=== PATIENT | female | born 1960 | race Caucasian/White ===

== ENCOUNTER → 2019-02-21 10:53 | Outpatient (CLI) | payer OTHER, SELFPAY ==
[2019-02-21 10:57] LABS: Microscopic, Urine URINE MICROSCOPIC (MICROSCOPIC)
[2019-02-21 11:24] LABS: Basophils # 0.1 K/mm3 (0-0.2); Basophils % 0.5 % (0.1-2.0); Eosinophils # 0.3 K/mm3 (0.0-0.4); Eosinophils % 2.8 % (0.1-12.0); Hematocrit 43.3 % (37.0-47.0); Hemoglobin 14.1 g/dL (12.2-16.2); Lymphocytes % 38.1 % (10-50); Mean Corpuscular HGB Conc 32.5 g/dL (31.8-35.4); Mean Corpuscular Hemoglobin 31.5 pg (27.0-31.2); Mean Corpuscular Volume 96.7 fl (81-99); Mean Platelet Volume 10.1 fl (7.4-10.4); Monocytes # 0.7 K/mm3 (0.1-1.0); Monocytes % 6.3 % (1.7-9.3); Neutrophils # 5.4 K/mm3 (1.8-7.8); Neutrophils % 52.2 % (37.0-80.0); Platelet Count 262 K/mm3 (142-424); Red Blood Count 4.48 M/mm3 (4.20-5.40); Red Cell Distribution Width 13.7 % (11.5-17.5); White Blood Count 10.4 K/mm3 (4.8-10.8)
[2019-02-21 12:24] LABS: Alanine Aminotransferase 34 U/L (12-78); Albumin Level 3.9 gm/dL (3.4-5.0); Albumin/Globulin Ratio 1.2 (1.1-1.8); Alkaline Phosphatase 141 U/L (46-116); Anion Gap 16.1 mEq/L (5-15); Aspartate Amino Transferase 21 U/L (15-37); Bilirubin,Total 0.6 mg/dL (0.2-1.0); Blood Urea Nitrogen 16 mg/dL (7-18); Calcium 9.7 mg/dL (8.5-10.1); Carbon Dioxide 27 mmol/L (21.0-32.0); Chloride 103 mmol/L (98-107); Chol/HDL Ratio 2.5 (1-3.5); Cholesterol 165 mg/dL (140-200); Creatinine,Serum 0.81 mg/dL (0.55-1.02); Estimated Glomerular Filt Rate 73 ml/min (>60); GFR (African American) 88 ML/MIN (>60); Globulin 3.3 gm/dl (1.3-3.2); Glucose 94 mg/dL (74-106); HDL Cholesterol 65 mg/dL (29-89); LDL Cholesterol 81 mg/dL (0-130); Potassium 4.1 mmoL/L (3.5-5.1); Sodium 142 mmol/L (136-145); Total Protein,Serum 7.2 gm/dL (6.4-8.2); Triglycerides 96 mg/dL (30-200); VLDL Cholesterol 19 mg/dL (0-40)
[2019-02-21 12:32] LABS: Appearance,Urine SL CLOUDY (Clear); Bilirubin,Urine Negative (Negative); Blood, Urine Negative (Negative); Color,Urine YELLOW (Yellow); Glucose,Urine (UA) Negative (Negative); Ketones,Urine Negative (Negative); Leukocyte Esterase,Urine Negative (Negative); Nitrate,Urine Negative (Negative); PH,Urine 5.5 (5.0-8.5); Protein,Urine Negative (Negative); Specific Gravity, Urine 1.025 (1.005-1.030); Urobilinogen,Urine 0.2 EU/dl (0.2)
[2019-02-21 12:57] LABS: Bacteria,Urine 1+ /lpf
== END ==
PROVIDERS: Visit Provider Internal Medicine
DX: Z01.818 Encounter for other preprocedural examination (principal); I10 Essential (primary) hypertension; E78.5 Hyperlipidemia, unspecified
CPT/HCPCS: 36415; 80053; 80061; 81001; 85025; 93005

== ENCOUNTER → 2021-09-08 12:16 | Outpatient (CLI) | payer OTHER, SELFPAY ==
[2021-09-08 12:24] LABS: Basophils # 0.1 K/mm3 (0-0.2); Basophils % 0.9 % (0.1-2.0); Eosinophils # 0.5 K/mm3 (0.0-0.4); Eosinophils % 4.7 % (0.1-12.0); Hematocrit 45.3 % (37.0-47.0); Hemoglobin 14.3 g/dL (12.2-16.2); Lymphocytes # 4.1 K/mm3 (0.7-4.5); Lymphocytes % 36.1 % (10-50); Mean Corpuscular HGB Conc 31.5 g/dL (31.8-35.4); Mean Corpuscular Hemoglobin 31.3 pg (27.0-31.2); Mean Corpuscular Volume 99.4 fl (81-99); Mean Platelet Volume 11.1 fl (7.4-10.4); Monocytes # 0.8 K/mm3 (0.1-1.0); Monocytes % 6.9 % (1.7-9.3); Neutrophils # 5.8 K/mm3 (1.8-7.8); Neutrophils % 51.4 % (37.0-80.0); Platelet Count 267 K/mm3 (142-424); Red Blood Count 4.56 M/mm3 (4.20-5.40); Red Cell Distribution Width 13.7 % (11.5-17.5); White Blood Count 11.3 K/mm3 (4.8-10.8)
[2021-09-08 12:50] LABS: Alanine Aminotransferase 18 U/L (12-78); Albumin Level 3.9 g/dl (3.5-5.0); Albumin/Globulin Ratio 1.5 (1.1-1.8); Alkaline Phosphatase 106 U/L (38-126); Anion Gap 10.7 mEq/L (5-15); Aspartate Amino Transferase 25 U/L (14-36); Bilirubin,Total 0.4 mg/dl (0.2-1.3); Blood Urea Nitrogen 14 mg/dl (7-17); Carbon Dioxide 31 mmol/L (22.0-30.0); Chloride 106 mmol/L (98-107); Chol/HDL Ratio 2.5 (1-3.5); Cholesterol 163 mg/dl (140-200); Estimated Glomerular Filt Rate 85 ml/min (>60); GFR (African American) 103 ML/MIN (>60); Globulin 2.6 g/dL (1.3-3.2); Glucose 89 mg/dl (74-100); HDL Cholesterol 66 mg/dl (40-60); Potassium 4.7 mmoL/L (3.5-5.1); Sodium 143 mmol/L (136-145); Total Protein,Serum 6.5 g/dl (6.3-8.2); Triglycerides 92 mg/dl (30-150); VLDL Cholesterol 18 mg/dL (0-40)
[2021-09-08 12:59] LABS: Erythrocyte Sedimentation Rate 12 mm/hr (0-30)
[2021-09-08 13:01] LABS: Direct LDL Cholesterol 75.76 mg/dL (100-129)
[2021-09-08 13:41] LABS: Vitamin B12 > 1000 pg/mL (239-931)
[2021-09-08 14:48] LABS: 25-OH Vitamin D, Total 67.4 ng/mL (30-100)
== END ==
PROVIDERS: Visit Provider Internal Medicine
DX: I10 Essential (primary) hypertension (principal); E78.5 Hyperlipidemia, unspecified
CPT/HCPCS: 80053; 80061; 82306; 82607; 85025; 85651

== ENCOUNTER → 2021-09-09 14:37 | Outpatient (CLI) | payer OTHER, SELFPAY ==
[2021-09-09 14:40] LABS: Adenovirus F 40/41, stool Not Detected (NotDetected); Astrovirus Not Detected (NotDetected); Campylobacter Not Detected (NotDetected); Clostridium Difficile A/B, PCR Not Detected (NotDetected); Cryptosporidium Not Detected (NotDetected); Cyclospora Cayetanesis Not Detected (NotDetected); Entamoeba histolytica Not Detected (NotDetected); Enteroaggregative E coli Not Detected (NotDetected); Enterotoxigenic E coli Not Detected (NotDetected); Giardia lamblia Not Detected (NotDetected); Norovirus Not Detected (NotDetected); Plesimonas Shigalloides, PCR Not Detected (NotDetected); Rotavirus A Not Detected (NotDetected); Salmonella, PCR Not Detected (NotDetected); Sapovirus Not Detected (NotDetected); Shiga-like toxin E coli Not Detected (NotDetected); Shigella Enterovasive E coli Not Detected (NotDetected); Vibrio Cholerae Not Detected (NotDetected); Vibrio, PCR Not Detected (NotDetected); Yersinia Entercolitica, PCR Not Detected (NotDetected)
[2021-09-09 21:51] LABS: Enteropathogenic E coli Detected (NotDetected)
== END ==
PROVIDERS: Visit Provider Internal Medicine
DX: R19.7 Diarrhea, unspecified (principal); A04.0 Enteropathogenic Escherichia coli infection
CPT/HCPCS: 87177; 87205; 87507

== ENCOUNTER → 2022-03-09 09:43 | Outpatient (CLI) | payer OTHER, SELFPAY ==
--- NOTE | 2022-03-09 12:17 | XR_ITS ---
FINAL REPORT CLINICAL HISTORY: LT KNEE PAIN,STIFFNESS FINDINGS: LEFT KNEE 3 views of the left knee were obtained. There is no acute fracture or dislocation. There is moderately advanced medial compartment joint space narrowing. There osteophytes along the undersurface of the patella. There is a small joint effusion. IMPRESSION: Moderate changes of osteoarthritis at the medial compartment and patellofemoral joints. Reviewed, Interpreted and Dictated by Rene Cross MD Transcribed by Ann Magana Authenticated by Rene Cross MD on 03/09/2022 01:32:19 PM [facility]
[2022-03-09 14:55] LABS: Alanine Aminotransferase 22 U/L (12-78); Albumin Level 4.1 g/dl (3.5-5.0); Albumin/Globulin Ratio 1.6 (1.1-1.8); Alkaline Phosphatase 109 U/L (38-126); Anion Gap 10.2 mEq/L (5-15); Aspartate Amino Transferase 21 U/L (14-36); Bilirubin,Total 0.6 mg/dl (0.2-1.3); Blood Urea Nitrogen 21 mg/dl (7-17); Calcium 9.9 mg/dl (8.4-10.2); Carbon Dioxide 30 mmol/L (22.0-30.0); Chloride 104 mmol/L (98-107); Chol/HDL Ratio 2.8 (1-3.5); Cholesterol 178 mg/dl (140-200); Estimated Glomerular Filt Rate 85 ml/min (>60); GFR (African American) 103 ML/MIN (>60); Globulin 2.5 g/dL (1.3-3.2); Glucose 98 mg/dl (74-100); HDL Cholesterol 64 mg/dl (40-60); Potassium 4.2 mmoL/L (3.5-5.1); Sodium 140 mmol/L (136-145); Total Protein,Serum 6.6 g/dl (6.3-8.2); Triglycerides 130 mg/dl (30-150); VLDL Cholesterol 26 mg/dL (0-40)
[2022-03-09 15:06] LABS: Direct LDL Cholesterol 83.37 mg/dL (100-129)
== END ==
PROVIDERS: PCP Internal Medicine; Visit Provider Internal Medicine
DX: M25.562 Pain in left knee (principal); M25.662 Stiffness of left knee, not elsewhere classified; I10 Essential (primary) hypertension; E78.5 Hyperlipidemia, unspecified; M15.0 Primary generalized (osteo)arthritis; D64.9 Anemia, unspecified
CPT/HCPCS: 73562; 80053; 80061

== ENCOUNTER 2022-06-03 09:00 | Outpatient (RCR) | payer OTHER, SELFPAY ==
--- NOTE | 2022-04-14 09:48 | HMH.PTOPEV ---
PT Outpatient Evaluation Rehab PT Outpatient Evaluation Start: 03/16/22 12:57 Freq: Status: Active Protocol: Document 03/16/22 13:37 JAIRON (Rec: 03/16/22 13:54 JAIRON [id number]) Electronically Signed By Mark Rinaldi, PT 03/16/22 13:37 Outpatient Therapy Subjective History Subjective History Patient is a 61 year old female presenting to outpatient PT with reports of acute knee pain starting approximatley 2 weeks ago. Patient reports that she was sitting in a chair and upon going to stand felt a pop/ locking of the L knee. Most recent imaging indicates L knee medial compartment and PFJ OA. Signs and symptoms consistent with meniscus tear. Comorbidities include hx of heart murmur, MVP, asthma, hypoglycemia and HTN. Patient observation also indicates possible lipidema, which could contribute to decreased mobility and elevated symptoms . Chief Complaint Pain,Stiff,Clicks,Swelling, Catches/Locks,Gives out/ Unstable,Weakness Symptom Type Ache,Throb,Sharp,Dull Symptoms Relieved By Rest/Positioning,Ice, Prescription Meds Symptoms Aggravated By Standing,Physical Activity, Walking Prior Functional Limitations None Current Functional Limitations Housework,Standing,Sitting, Squatting,Recreation Activity, Walking,Stairs,Balance,Bending /Stooping Symptom Description Constant but Variable Level of pain today (0-10) 8 Pain scale - at its best (0-10) 4 Pain scale - at its worst (0-10) 10 Hip/Knee Eval Gait Observation General Gait Pattern Observation Antalgic Gait,Decrease Weight Bear (L) Assistive Device Assistive Devices None / NA Palpation Tenderness left Knee Palpation Finding Tenderness Knee Palpation Overall Comment L lateral joint line and patellar tendon 4/4 MMT Hip Flexion Strength Grade 4- Good- Hip Abduction Strength Grade 4 Good Hip Adduction Strength Grade 4 Good Hip Extension Strength Grade 4- Good-
--- NOTE | 2022-05-17 09:48 | HMH.RHREAS ---
Rehab Reassessment Rehab OP Re-assessment Start: 04/14/22 09:38 Freq: Status: Active Protocol: Document 05/17/22 09:00 JAIRON (Rec: 05/17/22 09:41 JAIRON [id number]) Electronically Signed By Mark Rinaldi, PT 05/17/22 09:00 Rehab Re-assessment Subjective Subjective Patient reports 50% improvement since start of care. I've been having a lot of popping and locking in the left knee. Objective Objective Notes AROM: flx 89 (soft tissue obstruction) ; ext -3 MMT: WFL Pain: 5/10 today; 8/10 at worst over past week Standing/walking time: 20' Special tests: - Assessment Progress Assessment Slower Than Expected Assessment Notes Patient progressing slower than expected secondary to previous medical conditions. Patient has missed the past 2 weeks of PT secondary to cancer surgery. Patient contiues to exhibit signs and symptoms of lipidema in BLE that could be contributing to pain and decreased ROM. Patient would benefit from continuing with skilled PT services in order to address functional limitations with all standing/ambulatory activities. [ End ] Patient goals met STG 2. Goals Not Met All others Plan Plan Continue with current POC. Frequency of Therapy 2x/week Duration of therapy 4 weeks Time and Billing Re-Eval Time 15 Re-Eval Billing Units 1 PHYSICIAN CERTIFICATION: I certify the specified therapy services for Ekaterina Laird are required, authorized, and reviewed every 30 days.
== END 2022-06-03 09:05 | disposition home or self-care (01) ==
LOC: PT 09:00
PROVIDERS: PCP Internal Medicine; Visit Provider Internal Medicine
DX: M25.562 Pain in left knee (principal)
CPT/HCPCS: 97010; 97014; 97110; 97163; 97164; G0283

== ENCOUNTER → 2022-09-13 13:17 | Outpatient (CLI) | payer OTHER, SELFPAY ==
[2022-09-13 15:28] LABS: Basophils # 0.1 K/mm3 (0-0.2); Basophils % 0.9 % (0.1-2.0); Eosinophils # 0.4 K/mm3 (0.0-0.4); Eosinophils % 4.5 % (0.1-12.0); Hematocrit 46.9 % (37.0-47.0); Hemoglobin 14.7 g/dL (12.2-16.2); Lymphocytes # 3.4 K/mm3 (0.7-4.5); Lymphocytes % 36.6 % (10-50); Mean Corpuscular HGB Conc 31.3 g/dL (31.8-35.4); Mean Corpuscular Hemoglobin 30.5 pg (27.0-31.2); Mean Corpuscular Volume 97.4 fl (81-99); Mean Platelet Volume 10.5 fl (7.4-10.4); Monocytes # 0.5 K/mm3 (0.1-1.0); Monocytes % 5.9 % (1.7-9.3); Neutrophils # 4.8 K/mm3 (1.8-7.8); Neutrophils % 52.2 % (37.0-80.0); Platelet Count 310 K/mm3 (142-424); Red Blood Count 4.82 M/mm3 (4.20-5.40); Red Cell Distribution Width 13.8 % (11.5-17.5); White Blood Count 9.2 K/mm3 (4.8-10.8)
[2022-09-13 15:45] LABS: Alanine Aminotransferase 20 U/L (12-78); Albumin Level 4.2 g/dl (3.5-5.0); Albumin/Globulin Ratio 1.6 (1.1-1.8); Alkaline Phosphatase 147 U/L (38-126); Anion Gap 14.3 mEq/L (5-15); Aspartate Amino Transferase 28 U/L (14-36); Bilirubin,Total 0.5 mg/dl (0.2-1.3); Blood Urea Nitrogen 21 mg/dl (7-17); Calcium 10.2 mg/dl (8.4-10.2); Carbon Dioxide 29 mmol/L (22.0-30.0); Chloride 100 mmol/L (98-107); Chol/HDL Ratio 2.4 (1-3.5); Cholesterol 151 mg/dl (140-200); Estimated Glomerular Filt Rate 73 ml/min (>60); GFR (African American) 88 ML/MIN (>60); Globulin 2.6 g/dL (1.3-3.2); Glucose 108 mg/dl (74-100); HDL Cholesterol 64 mg/dl (40-60); Potassium 4.3 mmoL/L (3.5-5.1); Sodium 139 mmol/L (136-145); Total Protein,Serum 6.8 g/dl (6.3-8.2); Triglycerides 81 mg/dl (30-150); VLDL Cholesterol 16 mg/dL (0-40)
[2022-09-13 16:02] LABS: Direct LDL Cholesterol 68.42 mg/dL (100-129)
[2022-09-13 16:40] LABS: Vitamin B12 > 1000 pg/mL (239-931)
[2022-09-13 17:05] LABS: 25-OH Vitamin D, Total 59.5 ng/mL (30-100)
== END ==
PROVIDERS: PCP Internal Medicine; Visit Provider Internal Medicine
DX: I10 Essential (primary) hypertension (principal); I87.2 Venous insufficiency (chronic) (peripheral); E78.5 Hyperlipidemia, unspecified; J45.909 Unspecified asthma, uncomplicated; D64.9 Anemia, unspecified
CPT/HCPCS: 80053; 80061; 82306; 82607; 85025

== ENCOUNTER → 2023-03-13 13:03 | Outpatient (CLI) | payer OTHER, SELFPAY ==
[2023-03-13 14:14] LABS: Chloride 98 mmol/L (98-107); Potassium 4.8 mmoL/L (3.5-5.1); Sodium 140 mmol/L (136-145)
[2023-03-13 14:17] LABS: Alanine Aminotransferase 22 U/L (12-78); Albumin Level 4.2 g/dl (3.5-5.0); Albumin/Globulin Ratio 1.6 (1.1-1.8); Alkaline Phosphatase 113 U/L (38-126); Anion Gap 15.8 mEq/L (5-15); Aspartate Amino Transferase 26 U/L (14-36); Bilirubin,Total 0.5 mg/dl (0.2-1.3); Blood Urea Nitrogen 19 mg/dl (7-17); Carbon Dioxide 31 mmol/L (22.0-30.0); Cholesterol 163 mg/dl (140-200); Estimated Glomerular Filt Rate 73 ml/min (>60); GFR (African American) 88 ML/MIN (>60); Globulin 2.6 g/dL (1.3-3.2); Glucose 77 mg/dl (74-100); Total Protein,Serum 6.8 g/dl (6.3-8.2); Triglycerides 109 mg/dl (30-150); VLDL Cholesterol 22 mg/dL (0-40)
[2023-03-13 14:18] LABS: HDL Cholesterol 61 mg/dl (40-60)
[2023-03-13 14:23] LABS: Chol/HDL Ratio 2.7 (1-3.5)
[2023-03-13 14:29] LABS: Direct LDL Cholesterol 80.17 mg/dL (100-129)
[2023-03-13 15:33] LABS: Hemoglobin A1C 5.7 % (4.0-6.0)
[2023-03-15 09:24] LABS: Basophils # 0.1 K/mm3 (0-0.2); Basophils % 1.2 % (0.1-2.0); Eosinophils # 0.5 K/mm3 (0.0-0.4); Eosinophils % 4.8 % (0.1-12.0); Hematocrit 47.3 % (37.0-47.0); Hemoglobin 14.8 g/dL (12.2-16.2); Lymphocytes # 3.6 K/mm3 (0.7-4.5); Lymphocytes % 38.3 % (10-50); Mean Corpuscular HGB Conc 31.4 g/dL (31.8-35.4); Mean Corpuscular Hemoglobin 30.4 pg (27.0-31.2); Mean Platelet Volume 12.6 fl (7.4-10.4); Monocytes # 0.7 K/mm3 (0.1-1.0); Monocytes % 7.4 % (1.7-9.3); Neutrophils # 4.6 K/mm3 (1.8-7.8); Neutrophils % 48.3 % (37.0-80.0); Platelet Count 290 K/mm3 (142-424); Red Blood Count 4.88 M/mm3 (4.20-5.40); Red Cell Distribution Width 13.8 % (11.5-17.5); White Blood Count 9.5 K/mm3 (4.8-10.8)
== END ==
PROVIDERS: PCP Internal Medicine; Visit Provider Internal Medicine
DX: M15.0 Primary generalized (osteo)arthritis (principal); I10 Essential (primary) hypertension; E78.5 Hyperlipidemia, unspecified; D64.9 Anemia, unspecified; D72.10 Eosinophilia, unspecified
CPT/HCPCS: 80053; 80061; 83036; 85025

== ENCOUNTER → 2023-09-15 12:31 | Outpatient (CLI) | payer OTHER, SELFPAY ==
[2023-09-15 13:11] LABS: Basophils # 0.1 K/mm3 (0-0.2); Basophils % 0.6 % (0.1-2.0); Eosinophils # 0.4 K/mm3 (0.0-0.4); Eosinophils % 3.6 % (0.1-12.0); Hematocrit 46.2 % (37.0-47.0); Hemoglobin 15.4 g/dL (12.2-16.2); Lymphocytes # 3.3 K/mm3 (0.7-4.5); Lymphocytes % 31.7 % (10-50); Mean Corpuscular HGB Conc 33.3 g/dL (31.8-35.4); Mean Corpuscular Hemoglobin 32.2 pg (27.0-31.2); Mean Corpuscular Volume 96.8 fl (81-99); Mean Platelet Volume 10.5 fl (7.4-10.4); Monocytes # 0.6 K/mm3 (0.1-1.0); Monocytes % 5.9 % (1.7-9.3); Neutrophils # 6.1 K/mm3 (1.8-7.8); Neutrophils % 58.2 % (37.0-80.0); Platelet Count 218 K/mm3 (142-424); Red Blood Count 4.77 M/mm3 (4.20-5.40); Red Cell Distribution Width 13.7 % (11.5-17.5); White Blood Count 10.5 K/mm3 (4.8-10.8)
[2023-09-15 13:52] LABS: Alanine Aminotransferase 23 U/L (12-78); Albumin Level 4.1 g/dl (3.5-5.0); Albumin/Globulin Ratio 1.6 (1.1-1.8); Alkaline Phosphatase 112 U/L (38-126); Anion Gap 14.9 mEq/L (5-15); Aspartate Amino Transferase 25 U/L (14-36); Bilirubin,Total 0.5 mg/dl (0.2-1.3); Blood Urea Nitrogen 21 mg/dl (7-17); Calcium 9.8 mg/dl (8.4-10.2); Carbon Dioxide 27 mmol/L (22.0-30.0); Chloride 102 mmol/L (98-107); Chol/HDL Ratio 2.6 (1-3.5); Cholesterol 187 mg/dl (140-200); Estimated Glomerular Filt Rate 85 ml/min (>60); GFR (African American) 103 ML/MIN (>60); Globulin 2.6 g/dL (1.3-3.2); Glucose 91 mg/dl (74-100); HDL Cholesterol 73 mg/dl (40-60); Potassium 3.9 mmoL/L (3.5-5.1); Sodium 140 mmol/L (136-145); Total Protein,Serum 6.7 g/dl (6.3-8.2); Triglycerides 121 mg/dl (30-150); VLDL Cholesterol 24 mg/dL (0-40)
[2023-09-15 14:03] LABS: Direct LDL Cholesterol 94.04 mg/dL (100-129)
== END ==
PROVIDERS: PCP Internal Medicine; Visit Provider Internal Medicine
DX: I10 Essential (primary) hypertension (principal); I89.0 Lymphedema, not elsewhere classified; E78.5 Hyperlipidemia, unspecified; J45.909 Unspecified asthma, uncomplicated; M15.0 Primary generalized (osteo)arthritis; M54.42 Lumbago with sciatica, left side
CPT/HCPCS: 80053; 80061; 85025

== ENCOUNTER 2023-11-21 16:00 | Outpatient (RCR) | payer OTHER, SELFPAY ==
--- NOTE | 2023-09-28 11:20 | HMH.PTOPEV ---
PT Outpatient Evaluation Rehab PT Outpatient Evaluation Start: 09/28/23 09:03 Freq: Status: Active Protocol: Document 09/28/23 09:04 GIOVANNY (Rec: 09/28/23 11:20 GIOVANNY [id number]) E-signed By Lizet Travis, PT Outpatient Therapy Subjective History Subjective History Pt is a 63 y/o female who reports insidious onset of central low back pain about 1 month ago. Pt reports a week later she noticed sharp, shooting pain down the left leg to the posterior knee and intermittent tingling. Pt denies distal LE symptoms, saddle anesthesia or b/b dysfunction. Pt reports she initially could not walk and had to use a RW due to severity of pain. Pt reports she was prescribed steroids and a pain medication which did help decrease intensity of pain to where she could walk more. Pt denies having recent imaging of the low back. Pt reports pain is aggaravted by sitting >30 min, standing/ walking <5 minutes, and bending. Pt reports her children/grandchildren are assisting with household care such as cooking, cleaning and grocery shopping because she is unable. Pt reports she is independent with dressing/ bathing but she has to be slow and cautious. Pt reports she may be having surgery for breast cancer soon which may interfere with PT treatment. Medical History: Hypertension, hypoglycemia, breast cancer, skin cancer, asthma, heart murmur New diagnosis of cancer in past 12 Yes: breast cancer and skin months? cancer Chief Complaint Pain Symptom Type Sharp,Burning,Tingling, Shooting Symptoms Relieved By Heat,Ice,Prescription Meds Symptoms Aggravated By Bending/Stooping,Physical Activity,Walking,Lifting Prior Functional Limitations None Current Functional Limitations Lifting,Housework,Dressing, Sleeping,Standing,Sitting, Squatting,Walking,Stairs, Balance,Bending/Stooping Symptom Description Constant but Variable Level of pain today (0-10) 7 Pain scale - at its best (0-10) 6 Pain scale - at its worst (0-10) 10 Lumbopelvic Eval Posture Lumbar Spine Posture Standing Position Increased Lordosis Assistive device Assistive Devices None / NA Gait Observation General Gait Pattern Observation Antalgic Gait,Wide Based Gait Palapation tenderness bilateral thoracic spinal tenderness Yes lumbar spinal tenderness Yes paraspinal tenderness Yes buttock tenderness Yes Lumbar/Sacral Palpation Findings Tenderness Range of Motion Lumbar Spine Active Flexion Range of 50 Motion (degrees) Lumbar Spine Active Extension Range of 8 Motion (degrees) Left Lumbar Spine Lateral Flexion Active 10 Range of Motion (degrees) Right Lumbar Spine Lateral Flexion 10 Active Range of Motion (degrees) Manual Muscle Test Bilateral Knee Extension Strength Grade 5 Normal Knee Flexion Strength Grade 5 Normal Hip Flexion Strength Grade 4 Good Hip Abduction Strength Grade 4 Good Hip Adduction Strength Grade 4 Good Hip Extension Strength Grade 4- Good- Ankle Dorsiflexion Strength Grade 5 Normal DTR Rt Patellar 1+ Lt Patellar 1+ Rt Gastroc/Soleus 1+ Lt Gastroc/Soleus 1+ Altered Sensation Bilateral Comment equal and intact to light touch sensation bilaterally Special Tests Sciatic Nerve Tension Test Positive Left Unilateral Straight Leg Raise (Lasegue) Negative Left Test Oswestry Index Section 1 Pain Intensity The pain comes and goes and is severe Section 2 Personal Care (Washing,Dresing) my way of washing or dressing even though it causes some pain Section 3 Lifting I can only lift very light weights at most Section 4 Walking I cannot walk more than one mile wihtout increasing pain Section 5 Sitting Pain prevents me from sitting for more than one hour Section 6 Standing I avoid standing because it increases the pain immediately Section 7 Sleeping Because of my pain, my normal night's sleep is less than 4 hours Section 8 Social Life I hardly have any social life because of pain Section 9 Traveling Pain restricts me to short necessary journeys under 30 minutes Section 10 Changing Degreee of Pain My pain is neither getting better or worse Score and Risk Level Oswestry Sc 34 Oswestry Risk Level Severe Disability Outpatient Therapy Assessment Impairments Problems/Impairmments Palpation Tenderness,Impaired Range of Motion,Impaired Strength,Impaired Endurance, Impaired Gait Pattern,Impaired Walking,Impaired Standing, Impaired Sitting,Impaired Lifting,Impaired Shower/ Bathing,Impaired Household Care,Impaired Stair Climbing, Impaired Squatting,Impaired Bending,Impaired Balance, Subjective C/O Pain,Impaired Self Care/Self Management Prognosis Rehab Potential Fair Comment Pt reports she may have surgery for breast cancer posing as a barrier to progress Clinical Impression Consistent with Diagnosis Yes Short Term Goals Number of Weeks 3 Increase Range of Motion Yes: Improve lumbar flexion AROM to at least 55-60 Increase Endurance Yes: Perform NuStep x8-10' with pain <8/10 Improve Ability to Dress Self Yes: I without increased time/ difficulty Improve Ability to Shower/Bathe Self Yes: I without increased time/ difficulty Improve Oswestry Score Yes: Improve MALCOM score to 30 or less to improve overall QOL Decrease Subjective C/O Pain Yes: Improve pain severity at worst to 6/10 to improve overall QOL Patient to be Ind w/ HEP Yes [employer] Equipment [employer] Goals Number of Weeks 6 Increase Range of Motion Yes: Improve lumbar flexion AROM to 75, ext and LF to 15 Increase Strength Yes: Improve BLE MMT to 4+/5 grossly to assist with function Improve Ability For Household Care Yes: I Improve Ability to Bend Yes Improve Oswestry Score Yes: Improve score to 20-24 to improve overall QOL Decrease Subjective C/O Pain Yes: Improve pain severity at worst to 6/10 to improve overall QOL Outpatient Therapy Plan of Care Treatment Plan May Include Therapeutic Exercise Including Home Yes Exercise Program Manual Therapy Techniques Yes Neuromuscular Re-education Yes Therapeutic Activities to Return to Yes Previous Functional/Work Level ADL/Self Care Education Yes Mechanical Traction Yes Dry Needling Yes Thermal Modalities Yes Electrical Stimulation Yes Ultrasound/Phonophoresis Yes Iontophoresis Yes Massage Yes Eval/Re-Eval Yes Frequency Times per week 2 Duration Number of Weeks 4-6 Addendums This patient is a candidate for social No or vocational rehab? Patient/Guardian verbally acknowledges Yes understanding of treatment program and consents to further treatment? Patient/Guardian verbally acknowledges Yes understanding of diagnosis, prognosis and goals for treatment? Eval Complexity PT Charges 81930 - Moderate Complexity Shoulder/Elbow Eval Shoulder Objective Measurements Elbow Objective Measurements PHYSICIAN CERTIFICATION: I certify the specified therapy services for Ekaterina Laird are required, authorized, and reviewed every 30 days.
--- NOTE | 2023-10-25 16:08 | HMH.RHREAS ---
Rehab Reassessment Rehab OP Re-assessment Start: 09/28/23 09:03 Freq: Status: Active Protocol: Document 10/25/23 15:24 DIONGORGE (Rec: 10/25/23 16:07 DIONHAILYRajendra [id number]) E-signed By Lizet Travis, PT Oswestry Index Section 1 Pain Intensity The pain comes and goes and is moderate Section 2 Personal Care (Washing,Dresing) my way of washing or dressing even though it causes some pain Section 3 Lifting Pain prevents me from lifting weights off the floor Section 4 Walking I cannot walk more than 1/4 mile without increasing pain Section 5 Sitting Pain prevents me from sitting for more than one hour Section 6 Standing I cannot stand more than 10 minutes without increasing pain Section 7 Sleeping Because of my pain, my normal night's sleep is less than 4 hours Section 8 Social Life My social life is normal but increases the degree of pain Section 9 Traveling I get extra pain while traveling, but it does not compel me to seek al Section 10 Changing Degreee of Pain My pain seems to be getting better, but improvement is slow Score and Risk Level Oswestry Sc 23 Oswestry Risk Level Moderate Disability Rehab Re-assessment Subjective Subjective Pt reports she feels 70% improved since starting PT. Pt reports LBP at worst as 3/10 within the last week. Pt reports she continues to have LBP with prolonged standing/ walking and certain movements. Pt reports less LE radicular symptoms although they do occur occasionally. Pt reports compliance with HEP. Objective Objective Notes Lumbar AROM: flex 60, ext 10, LF 20 Assessment Progress Assessment Progressing as Expected Assessment Notes Pt has attended PT visits consisting of aerobic exercise , LE stretching/strengthening, neural glides, and HEP with fair-good tolerance. Pt demonstrated improved lumbar AROM and MALCOM score this date compared to the initial evaluation. Pt continues to report pain with prolonged standing/walking and twisting movements including rotation. Pt would continue to benefit from skilled PT to further improve pain, lumbar AROM, LE strength and functional activity tolerance to improve overall QOL. Patient goals met ST/7 Goals Not Met LTG Revised Goals n/a Plan Plan Continue initial POC Frequency of Therapy 1x/week Duration of therapy 3-4 more weeks Time and Billing Re-Eval Time 10 Re-Eval Billing Units 1 PHYSICIAN CERTIFICATION: I certify the specified therapy services for Ekaterina Natalya Laird are required, authorized, and reviewed every 30 days.
--- NOTE | 2023-11-21 17:30 | HMH.RHREAS ---
Rehab Reassessment Rehab OP Re-assessment Start: 09/28/23 09:03 Freq: Status: Active Protocol: Document 11/21/23 16:03 DIONGORGE (Rec: 11/21/23 17:29 KEVINDULCE [id number]) E-signed By Lizet Travis, PT Oswestry Index Section 1 Pain Intensity The pain comes and goes and is severe Section 2 Personal Care (Washing,Dresing) increase the pain, but I manage not to change my way of doing it Section 3 Lifting lifting heavy weights off the floor, but I can manage if they are Section 4 Walking I cannot walk more than 1/4 mile without increasing pain Section 5 Sitting Pain prevents me from sitting for more than one hour Section 6 Standing I avoid standing because it increases the pain immediately Section 7 Sleeping Because of my pain, my normal night's sleep is less than 6 hours sleep Section 8 Social Life Pain has restricted my social life and I do not go out often Section 9 Traveling I get some pain when traveling , but none of my usual forms of travel m Section 10 Changing Degreee of Pain My pain seems to be getting better, but improvement is slow Score and Risk Level Oswestry Sc 28 Oswestry Risk Level Severe Disability Rehab Re-assessment Subjective Subjective Pt reports she feels 60% improved since starting PT. Pt reports she was doing well until Osmani when she had to stand and cook for a long time. Pt reports continued central LBP rated 10/10 on VAS scale at worst within the last week. Pt reports continued pain and difficulty with standing and walking. Pt reports her back feels hot to touch and lyn with standing, walking and prolonged sitting . Pt also reports intermittent left posterior leg pain. Objective Objective Notes Lumbar AROM: flex 55, ext 12, LF 20 LLE MMT: hip flex 4/5, hip abd /add 4/5, knee ext 5/5, knee flex 5/5, ankle DF 5/5 Assessment Progress Assessment Slower Than Expected Assessment Notes Pt has attended 11 PT visits consisting of aerobic exercise , lumbar mobility, LE stretching/strengthening, modalities and HEP with fair- good tolerance. Pt demonstrated slight regression of MALCOM score, lumbar flexion AROM and worsening pain since the last reassessment. Due to regression in progress with conservative care, hold PT treatment at this time and refer patient back to MD for lumbar spine MRI and further treatment options. Patient goals met ST Goals Not Met MALCOM score, pain severity Revised Goals n/a Plan Plan Recommend lumbar spine MRI due to report of severe LBP and regression in progress with conservative care. Hold PT treatment until MRI results are received, resume if indicated. Frequency of Therapy 2x/week Duration of therapy 4 weeks Time and Billing Re-Eval Time 12 Re-Eval Billing Units 1 PHYSICIAN CERTIFICATION: I certify the specified therapy services for Ekaterina Laird are required, authorized, and reviewed every 30 days.
== END 2023-11-21 17:00 | disposition home or self-care (01) ==
LOC: PT 16:00
PROVIDERS: PCP Internal Medicine; Visit Provider Internal Medicine
DX: M54.42 Lumbago with sciatica, left side (principal)
CPT/HCPCS: 97010; 97035; 97110; 97140; 97163; 97164; 97530

== ENCOUNTER 2023-12-12 07:13 | Outpatient (CLI) | payer OTHER, SELFPAY ==
--- NOTE | 2023-12-12 07:27 | MR_ITS ---
FINAL REPORT TECHNIQUE: Multiplanar MR without gadolinium enhancement CLINICAL HISTORY: LUMBAGO WITH LEFT SCIATICA COMPARISON: None FINDINGS: Sagittal images show normal vertebral height. Alignment is normal. Marrow signal pattern is heterogeneous, and may represent predominantly red marrow although marrow infiltration is not excluded. At the L2-3 level and the L4-5 level there is fatty marrow replacement at the disc spaces consistent with degenerative change. T12-L1: No evidence of canal stenosis or neural foraminal narrowing. L1-2: A small annular bulge is present without evidence of canal stenosis or neuroforaminal narrowing. L2-3: A moderate annular bulge is present, with borderline canal stenosis and mild neuroforaminal narrowing. L3-4: A moderate annular bulge is present with facet arthropathy, mild canal stenosis, and moderate bilateral neural foraminal narrowing. L4-5: A small annular bulge is present with facet arthropathy. There is no canal stenosis present, however mild bilateral neural foraminal narrowing is present. L5-S1: Moderate facet arthropathy is present without evidence of canal stenosis or neural foraminal narrowing. IMPRESSION: Multilevel lumbar degenerative change, most severe at the L3-4 level as described. Heterogeneous bone marrow signal, likely predominantly red marrow although marrow infiltrative process is not excluded. Reviewed, Interpreted and Dictated by Fan Jacobs MD Transcribed by Amanda Melgoza Authenticated and [facility]
== END 2023-12-12 23:59 ==
LOC: RAD 07:14
PROVIDERS: PCP Internal Medicine; Visit Provider Internal Medicine
DX: M54.42 Lumbago with sciatica, left side (principal)
CPT/HCPCS: 72148; 76376

== ENCOUNTER 2024-03-15 13:06 | Outpatient (CLI) | payer OTHER, SELFPAY ==
[2024-03-15 13:32] LABS: MANUAL DIFFERENTIAL MANUAL DIFFERENTIAL (MANUAL DIFF)
[2024-03-15 13:59] LABS: Basophils # 0.1 K/mm3 (0-0.2); Eosinophils # 0.3 K/mm3 (0.0-0.4); Eosinophils % 2.8 % (0.1-12.0); Hematocrit 48.4 % (37.0-47.0); Hemoglobin 15.5 g/dL (12.2-16.2); Lymphocytes # 2.7 K/mm3 (0.7-4.5); Lymphocytes % 30.2 % (10-50); Mean Corpuscular Hemoglobin 31.3 pg (27.0-31.2); Mean Corpuscular Volume 97.6 fl (81-99); Mean Platelet Volume 10.8 fl (7.4-10.4); Monocytes # 0.6 K/mm3 (0.1-1.0); Neutrophils # 5.3 K/mm3 (1.8-7.8); Platelet Count 234 K/mm3 (142-424); Red Blood Count 4.95 M/mm3 (4.20-5.40); Red Cell Distribution Width 14.3 % (11.5-17.5); White Blood Count 8.9 K/mm3 (4.8-10.8)
[2024-03-15 14:23] LABS: Alanine Aminotransferase 21 U/L (12-78); Albumin Level 4.4 g/dl (3.5-5.0); Albumin/Globulin Ratio 1.7 (1.1-1.8); Alkaline Phosphatase 118 U/L (38-126); Anion Gap 9.6 mEq/L (5-15); Aspartate Amino Transferase 27 U/L (14-36); Bilirubin,Total 0.8 mg/dl (0.2-1.3); Blood Urea Nitrogen 25 mg/dl (7-17); Calcium 10.4 mg/dl (8.4-10.2); Carbon Dioxide 29 mmol/L (22.0-30.0); Chloride 107 mmol/L (98-107); Cholesterol 173 mg/dl (140-200); Estimated Glomerular Filt Rate 85 ml/min (>60); GFR (African American) 102 ML/MIN (>60); Globulin 2.6 g/dL (1.3-3.2); Glucose 85 mg/dl (74-100); HDL Cholesterol 85 mg/dl (40-60); Potassium 4.6 mmoL/L (3.5-5.1); Sodium 141 mmol/L (136-145); Triglycerides 80 mg/dl (30-150); VLDL Cholesterol 16 mg/dL (0-40)
[2024-03-15 14:36] LABS: Direct LDL Cholesterol 88.15 mg/dL (100-129)
[2024-03-15 16:43] LABS: Eosinophils % 5 % (0-3); Lymphocytes % 25 % (10-50); Monocytes % 11 % (2-9); Neutrophils % 56 % (42-76); Total Cells Counted 100
[2024-03-15 16:46] LABS: Anisocytosis 1+; Platelet Estimate Normal; Poikilocytosis 1+
[2024-03-15 16:47] LABS: Macrocytosis 1+; Target Cells 1+
[2024-03-15 16:48] LABS: Tear Drop Cells 1+
== END 2024-03-15 23:59 | disposition home or self-care (01) ==
LOC: LAB.DROPOF 13:07
PROVIDERS: PCP Internal Medicine; Visit Provider Internal Medicine
DX: I10 Essential (primary) hypertension (principal); E78.5 Hyperlipidemia, unspecified; E66.01 Morbid (severe) obesity due to excess calories; M47.817 Spondylosis without myelopathy or radiculopathy, lumbosacral region; J30.9 Allergic rhinitis, unspecified; M15.0 Primary generalized (osteo)arthritis; Z68.42 Body mass index [BMI] 45.0-49.9, adult
CPT/HCPCS: 80053; 80061; 84443; 85007; 85014; 85018; 85048; 85049

== ENCOUNTER 2024-04-15 10:46 | Outpatient (CLI) | payer OTHER, SELFPAY ==
[2024-04-15 11:30] LABS: Calcium 10.1 mg/dl (8.4-10.2)
[2024-04-15 11:43] LABS: Intact Parathyroid Hormone 61.5 pg/mL (7.5-53.5)
== END 2024-04-15 23:59 | disposition home or self-care (01) ==
LOC: LAB.DROPOF 10:47
PROVIDERS: PCP Internal Medicine; Visit Provider Internal Medicine
DX: E83.52 Hypercalcemia (principal)
CPT/HCPCS: 82310; 83970; 84100

== ENCOUNTER 2024-09-16 12:09 | Outpatient (CLI) | payer OTHER, SELFPAY ==
[2024-09-16 17:03] LABS: Basophils # 0.1 K/mm3 (0-0.2); Basophils % 1.1 % (0.1-2.0); Eosinophils # 0.5 K/mm3 (0.0-0.4); Eosinophils % 4.5 % (0.1-12.0); Hematocrit 46.9 % (37.0-47.0); Hemoglobin 15.3 g/dL (12.2-16.2); Lymphocytes # 3.1 K/mm3 (0.7-4.5); Lymphocytes % 31.2 % (10-50); Mean Corpuscular HGB Conc 32.6 g/dL (31.8-35.4); Mean Corpuscular Hemoglobin 31.1 pg (27.0-31.2); Mean Corpuscular Volume 95.2 fl (81-99); Mean Platelet Volume 11.8 fl (7.4-10.4); Monocytes # 0.7 K/mm3 (0.1-1.0); Monocytes % 6.9 % (1.7-9.3); Neutrophils # 5.6 K/mm3 (1.8-7.8); Neutrophils % 56.4 % (37.0-80.0); Platelet Count 222 K/mm3 (142-424); Red Blood Count 4.93 M/mm3 (4.20-5.40); Red Cell Distribution Width 14.1 % (11.5-17.5)
[2024-09-16 19:05] LABS: Albumin Level 4.4 g/dl (3.5-5.0); Chloride 103 mmol/L (98-107)
[2024-09-16 19:06] LABS: Potassium 4.8 mmoL/L (3.5-5.1); Sodium 139 mmol/L (136-145)
[2024-09-16 19:08] LABS: Alanine Aminotransferase 21 U/L (12-78); Albumin/Globulin Ratio 1.8 (1.1-1.8); Anion Gap 12.8 mEq/L (5-15); Aspartate Amino Transferase 27 U/L (14-36); Blood Urea Nitrogen 23 mg/dl (7-17); Carbon Dioxide 28 mmol/L (22.0-30.0); Estimated Glomerular Filt Rate 72 ml/min (>60); GFR (African American) 88 ML/MIN (>60); Globulin 2.5 g/dL (1.3-3.2); Total Protein,Serum 6.9 g/dl (6.3-8.2)
[2024-09-16 19:09] LABS: Alkaline Phosphatase 116 U/L (38-126); Bilirubin,Total 0.6 mg/dl (0.2-1.3); Calcium 9.9 mg/dl (8.4-10.2); Chol/HDL Ratio 2.7 (1-3.5); Cholesterol 185 mg/dl (140-200); Glucose 66 mg/dl (74-100); HDL Cholesterol 68 mg/dl (40-60); Triglycerides 85 mg/dl (30-150); VLDL Cholesterol 17 mg/dL (0-40)
[2024-09-16 19:20] LABS: Direct LDL Cholesterol 88.17 mg/dL (100-129)
[2024-09-29 16:00] LABS: 1,25 Dihydroxy Vitamin D 26 pg/mL (.); 1,25-Dihydroxy, Vitamin D-2 <10 pg/mL (.); 1,25-Dihydroxy, Vitamin D-3 23 pg/mL (.)
== END 2024-09-16 23:59 | disposition home or self-care (01) ==
LOC: LAB.DROPOF 09-17 12:09
PROVIDERS: PCP Internal Medicine; Visit Provider Internal Medicine
DX: I10 Essential (primary) hypertension (principal); E78.5 Hyperlipidemia, unspecified; E55.9 Vitamin D deficiency, unspecified
CPT/HCPCS: 80053; 80061; 82652; 85025

== ENCOUNTER 2024-10-10 12:35 | Outpatient (CLI) | payer OTHER, SELFPAY ==
[2024-10-10 12:42] LABS: Adenovirus F 40/41, stool Not Detected (NotDetected); Astrovirus Not Detected (NotDetected); Campylobacter Not Detected (NotDetected); Clostridium Difficile A/B, PCR Not Detected (NotDetected); Cryptosporidium Not Detected (NotDetected); Cyclospora Cayetanesis Not Detected (NotDetected); Entamoeba histolytica Not Detected (NotDetected); Enteroaggregative E coli Not Detected (NotDetected); Enteropathogenic E coli Not Detected (NotDetected); Enterotoxigenic E coli Not Detected (NotDetected); Giardia lamblia Not Detected (NotDetected); Norovirus Not Detected (NotDetected); Plesimonas Shigalloides, PCR Not Detected (NotDetected); Rotavirus A Not Detected (NotDetected); Salmonella, PCR Not Detected (NotDetected); Sapovirus Not Detected (NotDetected); Shiga-like toxin E coli Not Detected (NotDetected); Shigella Enterovasive E coli Not Detected (NotDetected); Vibrio Cholerae Not Detected (NotDetected); Vibrio, PCR Not Detected (NotDetected); Yersinia Entercolitica, PCR Not Detected (NotDetected)
[2024-10-14 16:30] LABS: Pancreatic Elastase, Fecal 671 (>200)
== END 2024-10-10 23:59 | disposition home or self-care (01) ==
LOC: LAB 12:36
PROVIDERS: PCP Internal Medicine; Visit Provider Nurse Practitioner Family
DX: R19.7 Diarrhea, unspecified (principal); R14.0 Abdominal distension (gaseous)
CPT/HCPCS: 82656; 87507

== ENCOUNTER 2024-12-23 13:00 | Outpatient (CLI) | payer OTHER, SELFPAY | END 2024-12-23 23:59 | disposition home or self-care (01) | LOC: LAB.DROPOF 12-24 10:37 | PROVIDERS: PCP Internal Medicine; Visit Provider Internal Medicine | DX: B34.9 Viral infection, unspecified (principal); H65.93 Unspecified nonsuppurative otitis media, bilateral | CPT/HCPCS: 87635 ==

== ENCOUNTER 2025-01-08 16:04 | Outpatient (CLI) | payer OTHER, SELFPAY ==
--- NOTE | 2025-01-08 16:09 | XR_ITS ---
FINAL REPORT CLINICAL HISTORY: Asthma flare, persisting cough FINDINGS: 2 views of the chest were obtained . The heart mildly enlarged. The mediastinum is within normal limits. The lungs are clear. There is no pneumothorax. Osseous structures are unremarkable. IMPRESSION: Mild cardiomegaly without acute cardiopulmonary process. Reviewed, Interpreted and Dictated by Fan Jacobs MD Transcribed by Afia Saleem Authenticated and [facility]
== END 2025-01-08 23:59 | disposition home or self-care (01) ==
LOC: RAD 16:05
PROVIDERS: PCP Internal Medicine; Visit Provider Internal Medicine
DX: R05.3 Chronic cough (principal); J45.901 Unspecified asthma with (acute) exacerbation
CPT/HCPCS: 71046

== ENCOUNTER 2025-03-04 11:56 | Outpatient (CLI) | payer OTHER, SELFPAY ==
--- NOTE | 2025-03-04 12:02 | XR_ITS ---
FINAL REPORT CLINICAL HISTORY: Severe right knee pain COMPARISON: None FINDINGS: Three views of the right knee were obtained. There is no acute fracture or dislocation. There is moderately advanced medial compartment patellofemoral joint space narrowing. Osteophyte formation is noted along the undersurface of the patella and in the medial joint margin. There is no soft tissue abnormality. IMPRESSION: Moderate osteoarthritis. Reviewed, Interpreted and Dictated by Rene Cross MD Transcribed by Haleigh Bolaños Authenticated and . [facility]
== END 2025-03-04 23:59 | disposition home or self-care (01) ==
LOC: RAD 11:59
PROVIDERS: PCP Internal Medicine; Visit Provider Internal Medicine
DX: M17.11 Unilateral primary osteoarthritis, right knee (principal); M25.561 Pain in right knee
CPT/HCPCS: 73562

== ENCOUNTER 2025-03-18 09:30 | Outpatient (CLI) | payer OTHER, SELFPAY ==
[2025-03-18 18:50] LABS: Alanine Aminotransferase 20 U/L (12-78); Alkaline Phosphatase 105 U/L (38-126); Aspartate Amino Transferase 25 U/L (14-36); Bilirubin,Total 0.6 mg/dl (0.2-1.3); Calcium 9.9 mg/dl (8.4-10.2); Chloride 102 mmol/L (98-107); Chol/HDL Ratio 2.5 (1-3.5); Cholesterol 183 mg/dl (140-200); Glucose 60 mg/dl (74-100); HDL Cholesterol 73 mg/dl (40-60); Potassium 4.4 mmoL/L (3.5-5.1); Sodium 138 mmol/L (136-145); Triglycerides 131 mg/dl (30-150); VLDL Cholesterol 26 mg/dL (0-40)
[2025-03-18 18:53] LABS: Albumin Level 4.3 g/dl (3.5-5.0); Albumin/Globulin Ratio 1.9 (1.1-1.8); Anion Gap 10.4 mEq/L (5-15); Blood Urea Nitrogen 23 mg/dl (7-17); Carbon Dioxide 30 mmol/L (22.0-30.0); Estimated Glomerular Filt Rate 84 ml/min (>60); GFR (African American) 102 ML/MIN (>60); Globulin 2.3 g/dL (1.3-3.2); Total Protein,Serum 6.6 g/dl (6.3-8.2)
[2025-03-18 19:03] LABS: Direct LDL Cholesterol 82.03 mg/dL (100-129)
== END 2025-03-18 23:59 | disposition home or self-care (01) ==
LOC: LAB.DROPOF 03-19 12:17
PROVIDERS: PCP Internal Medicine; Visit Provider Internal Medicine
DX: E78.5 Hyperlipidemia, unspecified (principal); I10 Essential (primary) hypertension; E55.9 Vitamin D deficiency, unspecified
CPT/HCPCS: 80053; 80061; 82652

== ENCOUNTER 2025-04-16 13:13 | Outpatient (CLI) | payer OTHER, SELFPAY ==
[2025-04-21 00:08] LABS: I001-IgE Honey Bee <0.10 kU/L (Class 0); I002-IgE Hornet, White Face <0.10 kU/L (Class 0); I005-IgE Hornet Yellow <0.10 kU/L (Class 0)
== END 2025-04-16 23:59 | disposition home or self-care (01) ==
LOC: LAB 13:14
PROVIDERS: PCP Internal Medicine; Visit Provider Allergy & Immunology
DX: J45.40 Moderate persistent asthma, uncomplicated (principal); J30.1 Allergic rhinitis due to pollen
CPT/HCPCS: 36415; 83520; 86003

== ENCOUNTER 2025-09-17 09:45 | Outpatient (CLI) | payer MEDICARE, BC, SELFPAY ==
--- OUTSIDE RECORDS SUMMARY | 2025-08-08 09:17 | XMS_ITS | Encounter Summary ---
Author Organization Healthcare Address [address] [place] [address] Care Team Providers Care Line Operator Name Role Phone Stephanie Catherine ORTHODONTIST Primary Care Provider [phone] [phone] Reason for Visit * Imaging (Routine) - Closed Specialty Diagnoses / Procedures Referred By Nikita hickman Referred To Contact Radiology Diagnoses At high risk for breast cancer Family history of breast cancer Procedures Imaging MRI Procedure Not Performed MR Breast Bilateral w and wo IV Contrast Jennifer Burr, ORTHODONTIST [address] [facility] [address] [place] [address] Phone: tel: fax: Referral ID Status Reason Start Date Expiration Date Visits Re quested Visits Authorized [id number] Closed 02/05/2025 08/07/2026 1 1 Encounter Details Date Type Department Care Team (Latest Contact Info) Description 08/08/2025 10:17 AM EDT - 08/08/2025 11:59 PM EDT [facility] [address] [place] [address] At high risk for breast cancer; Family history of breast cancer Discharge Disposition: Home or Self Care Social History Tobacco Use Types Packs/Day Years Used Date Smoking Tobacco: Never Passive Smoke Exposure: Never Smokeless Tobacco: Never Alcohol Use Standard Drinks/Week Comments Not Currently 0 (1 standard drink = 0.6 oz pur e alcohol) PHQ-2 Answer Date Recorded Patient Health Questionnaire-2 Score 0 07/01/2024 Comments No Sex and Gender Information Value Date Recorded Sex Assigned at Not on file Legal Sex Female 7:45 PM EDT Gender Identity Not on file Sexual Orientation Not on file documented as of this encounter Medications at Time of Discharge albuterol 108 (90 Base) MCG/ACT inhaler Inhale 2 puffs. alpha tocopherol (Vitamin E) 400 units capsule Take 2 capsules (800 Units) by mouth 1 (one) time each day. amLODIPine (Norvasc) 5 MG tablet 09/11/2023 azelastine (Astelin) 0.1 % nasal spray 07/25/2023 cholecalciferol (Vitamin D-3) 125 MCG (5000 UT) capsule Take 2 capsules (10,000 Units) by mouth 1 (one) time each day. Cyanocobalamin 5000 MCG capsule Take 2 tablets by mouth 1 (one) time each day. Dextromethorphan -guaiFENesin 5-100 MG/5ML liquid Take 1 tablet by mouth 1 (one) time each day. EPINEPHrine (Epipen) 0.3 MG/0.3ML injection syringe 07/25/2023 ferrous sulfate 325 (65 Fe) MG tablet Take 1 tablet (325 mg) by mouth 1 (one) time each day with breakfast. fluticasone (Flonase) 50 MCG/ACT nasal spray 10/29/2023 GlucaGen HypoKit 1 MG injection 08/01/2023 ketoconazole (NIZOral) 2 % cream Apply 1 Application topically 1 (one) time each day. 03/11/2024 loratadine (Claritin) 5 MG/5ML syrup Take 5 mL (5 mg) by mouth 1 (one) time each day. losartan (Cozaar) 100 MG tablet Take 1 tablet (100 mg) by mouth 1 (one) time each day. meloxicam (Mobic) 15 MG tablet Take 1 tablet (15 mg) by mouth 1 (one) time each day if needed for moderate pain. 12/15/2023 metaxalone (Skelaxin) 800 MG tablet Take 1 tablet (800 mg) by mouth 3 (three) times a day. metoprolol tartrate (Lopressor) 25 MG tablet 09/13/2023 montelukast (Singulair) 10 MG tablet Take 1 tablet (10 mg) by mouth every night. 03/11/2024 Mounjaro 2.5 MG/0.5ML solution auto-injector solution pen-injector nitroglycerin (Nitrostat) 0.[address] 1 tablet (0.4 mg) under the tongue every 5 (five) minutes if needed. 03/17/2023 potassium chloride CR (Klor-Con M20) 20 MEQ ER tablet 09/13/2023 pravastatin (Pravachol) 20 MG tablet 09/13/2023 tiZANidine (Zanaflex) 4 MG tablet 09/15/2023 Trelegy Ellipta 200-62.5-25 MCG/ACT aerosol powder INHALE 1 PUFF DIRECTED ONCE DAILY 11/24/2023 triamterene-hydr ochlorothiazide (Maxzide-25) 37.5-25 MG tablet 09/13/2023 documented as of this encounter Plan of Treatment Upcoming Encounters Date Type Department Care Team ([facility] [place] [facility] st Contact Info) Description 02/09/2026 9:45 AM EDT Appointment [address] [place] [address] 02/09/2026 10:30 AM EDT Appointment [address] [place] [address] 02/09/2026 11:30 AM EDT Office Visit [facility] [address] [facility], 2nd [place] [address] Jennifer Burr, ORTHODONTIST [address] [facility] [address] [place] [address] documented as of this encounter Procedures Procedure Name Priority Date/Time Associated Diagnosis Comments IMAGING MRI PROCEDURE NOT PERFORMED Routine 08/08/2025 11:28 AM EDT At high risk for breast cancer Family history of breast cancer documented in this encounter Results * Imaging MRI Procedure Not Performed (08/08/2025 11:28 AM EDT) Narrative IMAGING - 08/08/2025 11:28 AM EDT This procedure was not performed. Procedure: MRI breast wow contrast Reason: Body Habitus us Jennifer Burr APRN IMG MRI PROCEDURES Final R esult IMAGING documented in this encounter Visit Diagnoses Diagnosis At high risk for breast cancer Family history of breast cancer Family history of malignant neoplasm of breast documented in this encounter Additional Health Concerns Assessment Noted Time A fall risk assessment has been complete d for the patient 08/08/2025 11:51 AM EDT documented as of this encounter Care Teams Line Operator Relationship Specialty Start Date End Date Stephanie Catherine APRN PCP - General 12/11/23 documented as of this encounter
--- OUTSIDE RECORDS SUMMARY | 2025-08-08 12:00 | XMS_ITS | Encounter Summary ---
Author Organization Healthcare Address [address] [place] [address] Care Team Providers Care Production Helper Name Role Phone Stephanie Catherine COMBINE INSPECTOR Primary Care Provider [phone] Encounter Details Date Type Department Care Team (Late st Contact Info) Description 08/08/2025 1:00 PM EDT Office Visit [facility] Breast [facility] [address] [facility], 2nd [place] [address] Jennifer Burr, COMBINE INSPECTOR 800 [facility] [address] [place] [address] At high risk for breast cancer (Primary Dx); Family history of breast cancer Social History Tobacco Use Types Packs/Day Years [...] on file documented as of this encounter Last Filed Vital Signs Vital Sign Reading Time Taken Comments Blood Pressure 157/82 08/08/2025 11:54 AM EDT Pulse 76 08/08/2025 11:54 AM EDT Temperature - - Respiratory Rate 18 08/08/2025 11:54 AM EDT Oxygen Saturation 94% 08/08/2025 11:54 AM EDT Inhaled Oxygen Concentration - - Weight 123 kg (271 lb 2.7 oz) 08/08/2025 11:54 A M EDT Height 170.2 cm (5' 7 ) 08/08/2025 11:54 AM EDT Body Mass Index 42.47 08/08/2025 11:54 AM EDT documented in this encounter Miscellaneous Notes * Progress Notes - Jennifer Burr, COMBINE INSPECTOR - 08/08/2025 1:00 PM EDT Images from the original note were not included. Subjective DOS: 08/08/2025 CC: Patient is seen in clinic for follow up. HPI Patient is a 64 year old female with PMH of left breast intraductal papilloma, right benign breast biopsy, HTN, asthma, endometriosis s/p TH, basal cell carcinoma s/p excision. She has no personal history of breast cancer. She has a family history of breast cancer: mother, sister, grandmother, great grandmother, niece, granddaughter were diagnosed at an unknown age. Other family history: mother and sister diagnosed with ovarian cancer at an unknown age. Patient notes she had genetic testing in the past by Dr. Ramirez, >30 years ago, who noted shewas a high risk for breast cancer. Patient states she has been undergoing screening since her late 20s. Based on the BRIAN model, lifetime risk of breast cancer is 42%. Patient denies palpable masses, skin changes, nipple discharge and pain. Denies unexpected weight changes, recent falls, vision changes. TREATMENT HISTORY: -DIAGNOSIS: left breast intraductal papilloma Based on the BRIAN model, lifetime risk of breast cancer is 42% -TREATMENT: Breast cancer surveillance: f/u in high risk clinic with annual MMG and annual MRI -IMAGING: I personally and independently reviewed the patients imaging which showed: Two benign lesions at 1' 5 and 7 cm from the nipple in the left breast PMHx: Past Medical History: Diagnosis Date Asthma Breast cancer Depression Hypertension Skin cancer PSHx: Past Surgical History: Procedure Laterality Date BACK SURGERY BREAST BIOPSY Left 2022 us core bx HERNIA REPAIR HYSTERECTOMY FHx: Family History Problem Relation Name Age of Onset Breast cancer Mother Ovarian cancer Mother Breast cancer Sister Ovarian cancer Sister Breast cancer Maternal Grandmother SHx: Social History Tobacco Use Smoking status: Never Passive exposure: Never Smokeless tobacco: Never Vaping Use Vaping status: Never Used Substance Use Topics Alcohol use: Not Currently Drug use: Never Employer: No address on file. Travel History Relevant International Travel History: Travel Screening Question Response Have you been in contact with someone who was sick? No / Unsure Do you have any of the following new or worsening symptoms? None of these Have you traveled internationally or domestically in the last month? No Travel History Travel since 11/18/23 No documented travel since 11/18/23 Relevant Domestic Travel History: N/A Immunizations Reviewed VACCINE / DOSE Flu Tetanus Pneumovax Shingles Allergies Bee venom, Doxycycline, Iv contrast, Morphine and codeine, Neomycin, Regadenoson, Aspirin, Oxycodone-acetaminophen, Heparin, Oxytetracycline, and Tape/bandaid adhesive Medications Current Outpatient Medications Medication Sig Dispense Refill albuterol 108 (90 Base) MCG/ACT inhaler Inhale 2 puffs. alpha tocopherol (Vitamin E) 400 units capsule Take 2 capsules (800 Units) by mouth 1 (one) time each day. amLODIPine (Norvasc) 5 MG tablet azelastine (Astelin) 0.1 % nasal spray cholecalciferol (Vitamin D-3) 125 MCG (5000 UT) capsule Take 2 capsules (10,000 Units) by mouth 1 (one) time each day. Cyanocobalamin 5000 MCG capsule Take 2 tablets by mouth 1 (one) time each day. Dextromethorphan-guaiFENesin 5-100 MG/5ML liquid Take 1 tablet by mouth 1 (one) time each day. EPINEPHrine (Epipen) 0.3 MG/0.3ML injection syringe ferrous sulfate 325 (65 Fe) MG tablet Take 1 tablet (325 mg) by mouth 1 (one) time each day with breakfast. fluticasone (Flonase) 50 MCG/ACT nasal spray GlucaGen HypoKit 1 MG injection ketoconazole (NIZOral) 2 % cream Apply 1 Application topically 1 (one) time each day. loratadine (Claritin) 5 MG/5ML syrup Take 5 mL (5 mg) by mouth 1 (one) time each day. losartan (Cozaar) 100 MG tablet Take 1 tablet (100 mg) by mouth 1 (one) time each day. meloxicam (Mobic) 15 MG tablet Take 1 tablet (15 mg) by mouth 1 (one) time each day if needed for moderate pain. metaxalone (Skelaxin) 800 MG tablet Take 1 tablet (800 mg) by mouth 3 (three) times a day. metoprolol tartrate (Lopressor) 25 MG tablet montelukast (Singulair) 10 MG tablet Take 1 tablet (10 mg) by mouth every night. Mounjaro 2.5 MG/0.5ML solution auto-injector solution pen-injector nitroglycerin (Nitrostat) 0.[address] 1 tablet (0.4 mg) under the tongue every 5 (five) minutes if needed. potassium chloride CR (Klor-Con M20) 20 MEQ ER tablet pravastatin (Pravachol) 20 MG tablet tiZANidine (Zanaflex) 4 MG tablet Trelegy Ellipta 200-62.5-25 MCG/ACT aerosol powder INHALE 1 PUFF DIRECTED ONCE DAILY triamterene-hydrochlorothiazide (Maxzide-25) 37.5-25 MG tablet No current facility-administered medications for this visit. Review of Systems Constitutional: Negative. Negative for fatigue and unexpected weight change. HENT: Negative. Respiratory: Negative. Negative for chest tightness and shortness of breath. Cardiovascular: Negative. Negative for chest pain and leg swelling. Gastrointestinal: Negative. Negative for diarrhea, nausea and vomiting. Genitourinary: Negative. Musculoskeletal: Negative. Negative for neck pain. Skin: Negative. Negative for itching and rash. Neurological: Negative. Negative for headaches. Psychiatric/Behavioral: Negative. Objective PE: Visit Vitals BP (!) 157/82 (BP Location: Right arm, Patient Position: Sitting, BP Cuff Size: Large adult) Pulse 76 Resp 18 Ht 1.702 m (5' 7 ) Wt 123 kg (271 lb 2.7 oz) SpO2 94% BMI 42.47 kg/m?? OB Status Hysterectomy Smoking Status Never BSA 2.41 m?? Physical Exam Constitutional: Appearance: Normal appearance. HENT: Head: Normocephalic and atraumatic. Right Ear: External ear normal. Left Ear: External ear normal. Nose: Nose normal. Eyes: Extraocular Movements: Extraocular movements intact. Cardiovascular: Rate and Rhythm: Normal rate. Pulmonary: Effort: Pulmonary effort is normal. Chest: Breasts: Right: No tenderness. Left: No tenderness. Comments: Breasts are examined upright and supine position. Bilateral dense and fibrocystic changesnoted. Bilateral grade 3 ptosis. Bilateral nipples are everted and without discharge. No discreet masses or skin changes on either breast. Musculoskeletal: General: Normal range of motion. Cervical back: Normal range of motion. Lymphadenopathy: Upper Body: Right upper body: No supraclavicular, axillary or pectoral adenopathy. Left upper body: No supraclavicular, axillary or pectoral adenopathy. Skin: General: Skin is warm and dry. Neurological: General: No focal deficit present. Mental Status: She is alert and oriented to person, place, and time. Psychiatric: Mood and Affect: Mood normal. Behavior: Behavior normal. Thought Content: Thought content normal. Judgment: Judgment normal. Radiology (reviewed by MD): MRI not performed due to body habitus. Pathology (reviewed by MD): intraductal papilloma, no atypia Assessment/Plan Patient is a 64 y.o. female presenting with family history of breast cancer. -Today's physical examination revealed bilateral fibroglandular breast tissue with no suspicious masses, nodules, skin changes, or nipple discharge. -We discussed the importance of breast self-awareness and performing self breast exams. We discussed the importance of knowing what's normal for your breasts. We discussed if any changes have been found, to notify the clinic. PLAN: L Intraductal papilloma Family history of breast cancer Based on the BRIAN model, lifetime risk of breast cancer is 42% RTC in 6 months for bilateral diagnostic mammogram, bilateral breast ultrasound and clinical exam As always, she is encouraged to contact our office at the number provided for any additional questions or concerns. She voiced understanding of the plan, asked appropriate questions, and all questions were answered to her satisfaction today. 40 minutes was spent on this encounter; including preparing to see the patient, which involved review/interpretation of diagnostics and reports; obtaining and/or reviewing separately obtained history; performing appropriate physical exam; ordering/scheduling medications, tests or procedures; communicating findings and counseling/educating the patient, family and/or caregiver; documentation in EMR; and care coordination. Her chronic comorbid conditions that impact our treatment planning include: Obesity - , with a last BMI of: 49 documented in this encounter Plan of Treatment Upcoming Encounters Date Type Department Care Team (Late st Contact Info) Description 02/09/2026 9:45 AM EDT Appointment [facility] [address] [facility] [address] [place] [address] 02/09/2026 10:30 AM EDT Appointment [facility] 234 [facility] [address] [place] [address] 02/09/2026 11:30 AM EDT Office Visit [facility] [address] [facility], [address]nd [place] [address] Jennifer Burr APRN 800 [facility] [address] [place] [address] Scheduled Orders Name Type Priority Associated Diagnoses Orde r Schedule Mammography Breast Diagnostic Tomosynthesis Bilateral Imaging Routine At high risk for breast cancer Family history of breast cancer Expected: 02/06/2026 (Approximate), Expires: 02/09/2027 US Breast Limited Right Imaging Routine At high risk for breast cancer Family history of breast cancer Expected: 02/06/2026, Expires: 02/09/2027 US Breast Limited Left Imaging Routine At high risk for breast cancer Family history of breast cancer Expected: 02/06/2026, Expires: 02/09/2027 documented as of this encounter Visit Diagnoses Diagnosis At high risk for breast cancer- Primary Family history of breast cancer Family history of malignant neoplasm of breast documented in this encounter Additional Health Concerns Assessment Noted Time A fall risk assessment has been complete d for the patient 08/08/2025 11:51 AM EDT documented as of this encounter Care Teams Production Helper Relationship Specialty Start Date End Date Stephanie Catherine APRN PCP - General 12/11/23 documented as of this encounter
[2025-09-17 12:47] LABS: Hematocrit 46.6 % (37.0-47.0); Hemoglobin 15.0 g/dL (12.2-16.2); Immature Granulocytes % 0.3 %; Mean Corpuscular HGB Conc 32.2 g/dL (31.8-35.4); Mean Corpuscular Hemoglobin 30.5 pg (27.0-31.2); Mean Corpuscular Volume 94.7 fl (81-99); Nucleated Red Blood Cells % 0 %; Platelet Count 233 K/mm3 (142-424); Red Blood Count 4.92 M/mm3 (4.20-5.40); Red Cell Distribution Width-SD 52.7 fL; White Blood Count 8.8 K/mm3 (4.8-10.8)
[2025-09-17 13:18] LABS: Alanine Aminotransferase 19 U/L (12-78); Albumin Level 4.5 g/dl (3.5-5.0); Albumin/Globulin Ratio 1.5 (1.1-1.8); Alkaline Phosphatase 109 U/L (38-126); Anion Gap 11.1 mEq/L (5-15); Aspartate Amino Transferase 25 U/L (14-36); Bilirubin,Total 0.8 mg/dl (0.2-1.3); Blood Urea Nitrogen 29 mg/dl (7-17); Calcium 10.3 mg/dl (8.4-10.2); Carbon Dioxide 29 mmol/L (22.0-30.0); Chloride 103 mmol/L (98-107); Cholesterol 173 mg/dl (140-200); Creatinine,Serum 0.80 mg/dl (0.52-1.04); Estimated Glomerular Filt Rate 72 ml/min (>60); GFR (African American) 87 ML/MIN (>60); Globulin 3.0 g/dL (1.3-3.2); Glucose 83 mg/dl (74-100); HDL Cholesterol 73 mg/dl (40-60); Potassium 4.1 mmoL/L (3.5-5.1); Sodium 139 mmol/L (136-145); Total Protein,Serum 7.5 g/dl (6.3-8.2); Triglycerides 84 mg/dl (30-150)
--- OUTSIDE RECORDS SUMMARY | 2025-09-18 19:37 | XMS_ITS | Encounter Summary ---
Author Organization [facility] Address [address] [place] [address] Care Team Providers Care Trimmer Loader Name Role Phone Stephanie Catherine DIRECTOR OF BILLING Primary Care Provider [phone] Encounter Details Date Type Department Care Team (Late st Contact Info) Description 04/28/2021 Orders Only External Location [address] [place] [address] Provider, External Social History Tobacco Use Types Packs/Day Years Used Date Smoking Tobacco: Never Assessed Comments Unknown Sex and Gender Information Value Date Recorded Sex Assigned at Not on file Legal Sex Female 7:45 PM EDT Gender Identity Not on file Sexual Orientation Not on file documented as of this encounter Plan of Treatment Upcoming Encounters Date Type Department Care Team (Late st Contact Info) Description 02/09/2026 9:45 AM EDT Appointment PAV Breast [facility] Breast Care [place] [address] [address] [facility] [address] [place] [address] 02/09/2026 10:30 AM EDT Appointment PAV [facility] Breast Care [place] [address] [facility] [address] [place] [address] 02/09/2026 11:30 AM EDT Office Visit [facility] [address] [facility], [address] [place] [address] Jennifer Burr APRN 800 [facility] Tami Choi [address] [address] documented as of this encounter Procedures Procedure Name Priority Date/Time Associated Diagnosis Comments MR BREAST OUTSIDE IMAGES 04/28/2021 11:58 AM EDT documented in this encounter Results * MR BREAST OUTSIDE IMAGES (04/28/2021 11:58 AM EDT) Anatomical Region Laterality Modality Breast Mammography 04/28/2021 11:5 8 AM EDT External Provider IMG BI PROCEDURES Final Result documented in this encounter Visit Diagnoses Not on filedocumented in this encounter Care Teams Trimmer Loader Relationship Specialty Start Date End Date Stephanie Catherine APRN PCP - General 12/11/23 documented as of this encounter
--- OUTSIDE RECORDS SUMMARY | 2025-09-18 19:37 | XMS_ITS | Encounter Summary ---
Author Organization Healthcare Address [address] [place] [address] Care Team Providers Care Internet Marketer Name Role Phone Stephanie Catherine FACILITY SECURITY OFFICER Primary Care Provider [phone] Encounter Details Date Type Department Care Team (Late st Contact Info) Description 2017 Orders Only External Location [address] [place] [address] Provider, External Social History Tobacco [...] 02/09/2026 9:45 AM EDT Appointment PAV Breast [facility] Breast Care [place] [address] [address] [facility] 800 [place] [address] 02/09/2026 10:30 AM EDT Appointment [facility] [address] [place] [address] 02/09/2026 11:30 AM EDT Office Visit [facility] [address] [facility], [address]nd [place] [address] Jennifer Burr APRN 800 [facility] Tami Choi [address] [address] documented as of this encounter Procedures Procedure Name Priority Date/Time Associated Diagnosis Comments MR BREAST OUTSIDE IMAGES 2017 12:10 PM EST documented in this encounter Results * MR BREAST OUTSIDE IMAGES (2017 12:10 PM EST) Anatomical Region Laterality Modality Breast Mammography 2017 12:1 0 PM EST us External Provider IMG BI PROCEDURES Final Result documented in this encounter Visit Diagnoses Not on filedocumented in this encounter Care Teams Internet Marketer Relationship Specialty Start Date End Date Stephanie Catherine APRN PCP - General 12/11/23 documented as of this encounter
--- OUTSIDE RECORDS SUMMARY | 2025-09-18 19:37 | XMS_ITS | Encounter Summary ---
Author Organization [facility] Address [address] [place] [address] Care Team Providers Care Laser Specialist Name Role Phone Stephanie Catherine LUIZA Primary Care Provider [phone] Encounter Details Date Type Department Care Team (Latest Contact Info) Description 08/08/2025 Travel Social History Tobacco Use Types Packs/Day Years [...] 02/09/2026 9:45 AM EDT Appointment PAV Breast [facility] Breast Care [facility] 234 [facility] 800 [place] [address] 02/09/2026 10:30 AM EDT Appointment PAV [facility] Breast Care [facility] [address] [facility] [address] [place] [address] 02/09/2026 11:30 AM EDT Office Visit PAV Breast Care [address] [place] [address] Jennifer Burr, STRUCTURAL STEEL WORKER HELPER 800 [facility] Tami Choi [facility] [address] [place] [address] documented as of this encounter Visit Diagnoses Not on filedocumented in this encounter Additional Health Concerns Assessment Noted Time A fall risk assessment has been complete d for the patient 08/08/2025 11:51 AM EDT documented as of this encounter Care Teams Laser Specialist Relationship Specialty Start Date End Date Stephanie Catherine, STRUCTURAL STEEL WORKER HELPER PCP - General 12/11/23 documented as of this encounter
--- OUTSIDE RECORDS SUMMARY | 2025-09-18 19:37 | XMS_ITS | Encounter Summary ---
Author Organization [facility] Address [address] [place] [address] Care Team Providers Care Cruller Maker Machine Name Role Phone Stephanie Catherine 5TH GRADE TEACHER Primary Care Provider [phone] [phone] Encounter Details Date Type Department Care Team (Late st Contact Info) Description 07/26/2023 Orders Only External Location [address] [place] [address] Provider, External Social History Tobacco [...] 02/09/2026 9:45 AM EDT Appointment PAV Breast [facility] Breast Care [place] [address] [address] [facility] 800 [place] [address] 02/09/2026 10:30 AM EDT Appointment PAV [facility] Breast Care [place] [address] [facility] [address] [place] [address] 02/09/2026 11:30 AM EDT Office Visit PAV Breast Care [place] [address] [facility], [address] [place] [address] Jennifer Burr APRN 800 [facility] Tami Choi [address] [address] documented as of this encounter Procedures Procedure Name Priority Date/Time Associated Diagnosis Comments MR BREAST OUTSIDE IMAGES 07/26/2023 11:25 AM EDT documented in this encounter Results * MR BREAST OUTSIDE IMAGES (07/26/2023 11:25 AM EDT) Anatomical Region Laterality Modality Breast Mammography 07/26/2023 11:2 5 AM EDT External Provider IMG BI PROCEDURES Final Result documented in this encounter Visit Diagnoses Not on filedocumented in this encounter Care Teams Cruller Maker Machine Relationship Specialty Start Date End Date Stephanie Catherine APRN PCP - General 12/11/23 documented as of this encounter
--- OUTSIDE RECORDS SUMMARY | 2025-09-18 19:37 | XMS_ITS | Encounter Summary ---
Author Organization Healthcare Address [address] [place] [address] Care Team Providers Care Aerial Photographer Name Role Phone Stephanie Catherine LIEUTENANT BALLISTICS Primary Care Provider [phone] Encounter Details Date Type Department Care Team (Late st Contact Info) Description 10/13/2017 Orders Only External Location [address] [place] [address] Provider, External Social History Tobacco [...] 02/09/2026 9:45 AM EDT Appointment [facility] Breast [facility] [place] [address] Tami Choi [facility] [address] [place] [address] 02/09/2026 10:30 AM EDT Appointment [facility] Breast Care [address] [facility] [address] [place] [address] 02/09/2026 11:30 AM EDT Office Visit [facility] [address] [facility], [address]nd [place] [id number] Jennifer Burr APRN [address] [facility] Tami Choi [address] [address] documented as of this encounter Procedures Procedure Name Priority Date/Time Associated Diagnosis Comments US BREAST OUTSIDE IMAGES 10/13/2017 9:50 AM EST documented in this encounter Results * US BREAST OUTSIDE IMAGES (10/13/2017 9:50 AM EST) Anatomical Region Laterality Modality Breast Mammography 10/13/2017 9:50 AM EST us External Provider IMG BI PROCEDURES Final Result documented in this encounter Visit Diagnoses Not on filedocumented in this encounter Care Teams Aerial Photographer Relationship Specialty Start Date End Date Stephanie Catherine APRN PCP - General 12/11/23 documented as of this encounter
--- OUTSIDE RECORDS SUMMARY | 2025-09-18 19:37 | XMS_ITS | Encounter Summary ---
Author Organization Healthcare Address [address] [place] [address] Care Team Providers Care Marine Services Technician Name Role Phone Stephanie Catherine CORE STRIPPER Primary Care Provider [phone] Encounter Details Date Type Department Care Team (Late st Contact Info) Description 04/17/2014 Orders Only External Location [address] [place] [address] Provider, External Social History Tobacco [...] 02/09/2026 9:45 AM EDT Appointment PAV Breast [facility] Breast Care [place] [address] Tami Choi [facility] [address] [place] [address] 02/09/2026 10:30 AM EDT Appointment PAV [facility] Breast Care [address] [facility] [address] [place] [address] 02/09/2026 11:30 AM EDT Office Visit [facility] [address] [facility], [address]nd [place] [address] Jennifer Burr APRN [address] [facility] Tami Choi [address] [address] documented as of this encounter Procedures Procedure Name Priority Date/Time Associated Diagnosis Comments MR BREAST OUTSIDE IMAGES 04/17/2014 3:06 PM EDT documented in this encounter Results * MR BREAST OUTSIDE IMAGES (04/17/2014 3:06 PM EDT) Anatomical Region Laterality Modality Breast Mammography 04/17/2014 3:06 PM EDT us External Provider IMG BI PROCEDURES Final Result documented in this encounter Visit Diagnoses Not on filedocumented in this encounter Care Teams Marine Services Technician Relationship Specialty Start Date End Date Stephanie Catherine APRN PCP - General 12/11/23 documented as of this encounter
--- OUTSIDE RECORDS SUMMARY | 2025-09-18 19:37 | XMS_ITS | Encounter Summary ---
Author Organization [facility] Address [address] [place] [address] Care Team Providers Care Mechanical Maintenance Foreman Name Role Phone Luis Angel Short MD Primary Care Provider [phone] Encounter Details Date Type Department Care Team (Late st Contact Info) Description 10/23/2012 Conversion Encounter [facility] [address] [place] [address] Interface, See Report Social History Tobacco Use Types Packs/Day Years Used Date Smoking Tobacco: Never Assessed Comments Unknown Sex and Gender Information Value Date Recorded Sex Assigned at Not on file Legal Sex Female 10:01 AM EDT Gender Identity Not on file Sexual Orientation Not on file documented as of this encounter Progress Notes * Interface, See Report - 10/23/2012 12:00 AM EST Patient: EKATERINA LAIRD. MR #: : [id number] Date of Visit: 10/23/2012 A ttending Physician: Delmi Osei Dictated By: ERIK LEWIS Referring Physician: Diagnosis: ANNUAL WWE , increased risk for breast cancer related to family history Allergies: DOXYCYCLINE, DESTIN DYE, BEE STINGS Chief complaint: no complaints today History of present illness: Here for annual exam. No complaints today. Had breast MRI and Mammogramdone 03/24 with Benign findings. Was told she was good for 1 year on breast screening. Saw Dr. PERAZA 09/24, had breast exam and is being scheduled for hernia repair surgery. Present family and/or social history: Family history: No change in family history from prior visit. Social history: Tobacco Y N PPD ETOH Y N # Drinks Marital Status Occupation Past medical history: Medical: No changes in medical history from prior visit. Surgical: No new surgical procedures from prior visit. Health maintenance: Mammogram: Colonoscopy: Pap smear: 02/21/11 Tumor Marker: CT Scan:BMD: Review of systems: Constitutional: No change in weight, no excessive fatigue Psychiatric: No history of anxiety, depression, bipolar disorder, or insomnia Eyes: WEARS GLASSES. Vision unchanged Ears, Nose, Mouth, Throat: Hearing normal, no swallowing difficulties, no sore throat Endocrine: +DIABETES. No history of thyroid disease, heat/cold intolerance Lymphatic: No enlarged lymph nodes Respiratory: +ARTHRITIS. No shortness of breath, cough, asthma, wheezing Cardiovascular: +HTN. +HEART MURMUR. No angina, orthopnea, edema, hyperlipidemia Gastrointestinal: +HEMORRHOIDS. No constipation or diarrhea, no reflux, nausea, or vomiting Genitourinary: No dysuria, hematuria, urgency, or frequency Neurologic: +MIGRAINES. +SLEEP APNEA. No numbness, weakness, syncope, seizures Musculoskeletal: +CHRONIC BACK PAIN. +ARTHRITIS. No muscle weakness Integumentary: No new skin lesions Gynecologic: No abnormal bleeding, vaginal discharge, pelvic pain, of h/o abnml pap smears LMP: P: 1 Vag Deliveries: 1 C-sec: Hematologic: No history of anemia, easy bruising, or blood clots Medications: See documented medication list. Physical exam: Constitutional: Weight 249 [place] 67 [place] [id number] Pulse Temp Neurological/Psychiatric: HEENT: Neck: Respiratory: Cardiovascular: Breasts: L>R. Generalized lumpiness throughout, but without discrete masses ir nodules. Nipples are everted and without discharge, There are no skin changes or lesions noted. Gastrointestinal: Lymphatic: Extremities: Skin: Gynecologic: External Genitalia: Vagina: Cervix: Uterus: Ovaries: Parametria: Smooth. Rectovaginal: Hemoccult: Procedure note: Assessment: Annual Well Woman Exam Increased risk for breast cancer related to family history Plan: Breast screening NCD RTC Approved by: Delmi Osei 4:09 PM , 10/23/2012 cc: documented in this encounter Plan of Treatment Upcoming Encounters Date Type Department Care Team (Late st Contact Info) Description 09/26/2025 10:45 AM EST Office Visit [facility] [address] [place] [address] Leandro Gutierrez MD [address] [place], [place] [id number] Scheduled Procedures Name Priority Associated Diagnoses Date/Ti me LEFT HEART CATH w/cors Unstable angina Chest pain, unspecified type documented as of this encounter Visit Diagnoses Not on filedocumented in this encounter Care Teams Mechanical Maintenance Foreman Relationship Specialty Start Date End Date Luis Angel Short MD [address] [facility] [address] [place] [address] PCP - General Internal Medicine 05/30/16 documented as of this encounter
--- OUTSIDE RECORDS SUMMARY | 2025-09-18 19:37 | XMS_ITS | Encounter Summary ---
Author Organization Healthcare Address [address] [place] [address] Care Team Providers Care Die Keeper Name Role Phone Stephanie Catherine SUPERVISOR REACTOR FUELING Primary Care Provider [phone] Encounter Details Date Type Department Care Team (Late st Contact Info) Description 08/05/2019 Orders Only External Location [address] [place] [address] Provider, External Social History Tobacco [...] 02/09/2026 9:45 AM EDT Appointment PAV Breast [facility] Breast Care [place] [address] Tami Choi [facility] [address] [place] [address] 02/09/2026 10:30 AM EDT Appointment P[facility] Breast Care [address] [facility] [address] [place] [address] 02/09/2026 11:30 AM EDT Office Visit [facility] [address] [facility], [address] [place] [address] Jennifer Burr APRN [address] [facility] Tami Choi [address] [address] documented as of this encounter Procedures Procedure Name Priority Date/Time Associated Diagnosis Comments US BREAST OUTSIDE IMAGES 08/05/2019 10:10 AM EDT documented in this encounter Results * US BREAST OUTSIDE IMAGES (08/05/2019 10:10 AM EDT) Anatomical Region Laterality Modality Breast Mammography 08/05/2019 10:1 0 AM EDT us External Provider IMG BI PROCEDURES Final Result documented in this encounter Visit Diagnoses Not on filedocumented in this encounter Care Teams Die Keeper Relationship Specialty Start Date End Date Stephanie Catherine APRN PCP - General 12/11/23 documented as of this encounter
--- OUTSIDE RECORDS SUMMARY | 2025-09-18 19:37 | XMS_ITS | Encounter Summary ---
Author Organization Healthcare Address [address] [place] [address] Care Team Providers Care Spreader Name Role Phone Stephanie Catherine DENTAL OFFICER Primary Care Provider [phone] Encounter Details Date Type Department Care Team (Late st Contact Info) Description 10/03/2018 Orders Only External Location [address] [place] [address] Provider, External Social History Tobacco [...] 02/09/2026 9:45 AM EDT Appointment PAV Breast [facility] Breast Care [place] [address] Tami Choi [facility] [address] [place] [address] 02/09/2026 10:30 AM EDT Appointment P[facility] Breast [facility] [address] [facility] [address] [place] [address] 02/09/2026 11:30 AM EDT Office Visit [facility] [address] [facility], [address] [place] [address] Jennifer Burr APRN [address] [facility] Tami Choi [address] [address] documented as of this encounter Procedures Procedure Name Priority Date/Time Associated Diagnosis Comments MR BREAST OUTSIDE IMAGES 10/03/2018 11:28 AM EST documented in this encounter Results * MR BREAST OUTSIDE IMAGES (10/03/2018 11:28 AM EST) Anatomical Region Laterality Modality Breast Mammography 10/03/2018 11:2 8 AM EST us External Provider IMG BI PROCEDURES Final Result documented in this encounter Visit Diagnoses Not on filedocumented in this encounter Care Teams Spreader Relationship Specialty Start Date End Date Stephanie Catherine, LUIZA PCP - General 12/11/23 documented as of this encounter
--- OUTSIDE RECORDS SUMMARY | 2025-09-18 19:37 | XMS_ITS | Clinical Summary ---
Author Organization Healthcare Address [address] 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 Iv Contrast Anaphylaxis,Unknown - Patient states they do not know rxn details High 03/13/2011 Pt states it was something given in Nuclear Medicine Morphine And Codeine Hives,Itching,Unkno w n - Patient states they do not know rxn details,Shortness of breath High 03/13/2011 Percocet and related Neomycin Anaphylaxis High 03/13/2011 Oxycodone-Acetaminophen Hives,Itching,Ot her - please document in the comment field Medium 03/13/2011 Oxytetracycline Unknown - Patient states they do not know rxn details Low 04/26/2016 WAS TOLD TO NEVER TAKE AGAIN; STATES PASSED OUT IN MD OFFICE Regadenoson Unknown - Patient states they do not know rxn details,Shortness of breath High 12/30/2016 SOB Tape/Bandaid Adhesive Unknown - Patient states they do not know rxn details Low 11/25/2016 SKIN IRRITATION Medications amLODIPine (Norvasc) 5 MG tablet 3 Active albuterol 108 (90 Base) MCG/ACT inhaler Inhale 2 puffs. Active azelastine (Astelin) 0.1 % nasal spray 3 Active cholecalciferol (Vitamin D-3) 125 MCG (5000 UT) capsule Take 2 capsules (10,000 Units) by mouth 1 (one) time each day. Active Cyanocobalamin 5000 MCG capsule Take 2 tablets by mouth 1 (one) time each day. Active EPINEPHrine (Epipen) 0.3 MG/0.3ML injection syringe 3 Active ferrous sulfate 325 (65 Fe) MG tablet Take 1 tablet (325 mg) by mouth 1 (one) time each day with breakfast. Active fluticasone (Flonase) 50 MCG/ACT nasal spray 3 Active Trelegy Ellipta 200-62.5-25 MCG/ACT aerosol powder INHALE 1 PUFF DIRECTED ONCE DAILY 4 Active GlucaGen HypoKit 1 MG injection 3 Active loratadine (Claritin) 5 MG/5ML syrup Take 5 mL (5 mg) by mouth 1 (one) time each day. Active losartan (Cozaar) 100 MG tablet Take 1 tablet (100 mg) by mouth 1 (one) time each day. Active metaxalone (Skelaxin) 800 MG tablet Take 1 tablet (800 mg) by mouth 3 (three) times a day. Active metoprolol tartrate (Lopressor) 25 MG tablet 3 Active nitroglycerin (Nitrostat) 0.[address] 1 tablet (0.4 mg) under the tongue every 5 (five) minutes if needed. 3 Active potassium chloride CR (Klor-Con M20) 20 MEQ ER tablet 3 Active pravastatin (Pravachol) 20 MG tablet 3 Active tiZANidine (Zanaflex) 4 MG tablet 3 Active triamterene-hyd rochlorothiazid e (Maxzide-25) 37.5-25 MG tablet 3 Active alpha tocopherol (Vitamin E) 400 units capsule Take 2 capsules (800 Units) by mouth 1 (one) time each day. Active Dextromethorpha n-guaiFENesin 5-100 MG/5ML liquid Take 1 tablet by mouth 1 (one) time each day. Active montelukast (Singulair) 10 MG tablet Take 1 tablet (10 mg) by mouth every night. 4 Active meloxicam (Mobic) 15 MG tablet Take 1 tablet (15 mg) by mouth 1 (one) time each day if needed for moderate pain. 4 Active ketoconazole (NIZOral) 2 % cream Apply 1 Application topically 1 (one) time each day. 4 Active Mounjaro 2.5 MG/0.5ML solution auto-injector solution pen-injector Active Encounters Date Type Department Care Team Description 08/08/2025 1:00 PM EDT Office Visit [facility] [address] [facility]nd [place] [address] Jennifer Burr APRN At high risk for breast cancer (Primary Dx); Family history of breast cancer 08/08/2025 10:17 AM EDT - 08/08/2025 11:59 PM EDT [facility] [address] [place] [address] At high risk for breast cancer; Family history of breast cancer Discharge Disposition: Home or Self Care 08/08/2025 Travel 08/04/2025 Travel from Last 3 Months Family History Medical History Relation Name Comments Breast cancer Maternal Grandmother Breast cancer Mother Ovarian cancer Mother Breast cancer Sister Ovarian cancer Sister Relation Name Status Comments Maternal Grandmother Mother Sister Social History Tobacco Use Types Packs/Day Years [...] on file Sexual Orientation Not on file Last Filed Vital Signs Vital Sign Reading Time Taken Comments Blood Pressure 157/82 08/08/2025 11:54 AM EDT Pulse 76 08/08/2025 11:54 AM EDT Temperature 36.6 C (97.9 F) 02/05/2025 3:11 PM EDT Respiratory Rate 18 08/08/2025 11:54 AM EDT Oxygen Saturation 94% 08/08/2025 11:54 AM EDT Inhaled Oxygen Concentration - - Weight 123 kg (271 lb 2.7 oz) 08/08/2025 11:54 A M EDT Height 170.2 cm (5' 7 ) 08/08/2025 11:54 AM EDT Body Mass Index 42.47 08/08/2025 11:54 AM EDT Plan of Treatment Upcoming Encounters Date Type Department Care Team (Late st Contact Info) Description 02/09/2026 9:45 AM EDT Appointment [facility] [address] [facility] [address] [place] [address] 02/09/2026 10:30 AM EDT Appointment P[facility] [address] [facility] [address] [place] [address] 02/09/2026 11:30 AM EDT Office Visit [facility] [address] [facility] [place] [address] Jennifer Burr, AVIONICS ENGINEER [address] [facility] [address] [place] [address] Health Maintenance Due Date Last Done Comments [facility]-HIV Screening 1960 [facility]-Hepatitis C Screening 1960 [facility]Infant/Child/Adol SDOH Screenings 1960 [facility]-Obesity Intervention 1966 [facility]- SDOH Screenings 1978 [facility]-Adult SDOH Screenings 1978 CT Colonography 2005 Colonoscopy 2005 FIT-DNA 2005 FIT 2005 FOBT 2005 Sigmoidoscopy 2005 [facility]-Colorectal Cancer Screening 2005 [facility]-Depression Screening 07/01/2025 07/01/2024 [facility]-Pneumococcal Vaccine: 50+ Years (2 of 2 - PCV) 09/16/2025 09/16/2024 [facility]-DTaP,Tdap,and Td Vaccines (2 - Td or Tdap) 08/01/2026 08/01/2016 [facility]-Breast Cancer Screening 02/05/202701/12, 12/13/2023, 12/13/2023, Additional history exists [facility]-Cervical Cancer Screening Discontinued [facility]-HPV/Cotest Discontinued 09/07/2001, 02/2000, 08/18/1999, Additional history exists [facility]-Pap Smear Discontinued 09/07/2001, 02/2000, 08/18/1999, Additional history exists [facility]-Hepatitis A Vaccines Aged Out 03/16/2018 No longer eligible based on patient's age to complete this topic [facility]-Zoster Vaccines Completed 04/30/2019, 9 [facility]-Diabetes: Hemoglobin A1C Discontinued 02/06/2023 [facility]-RSV Vaccine: 60+ Years or Completed 09/15/2023 HTN-HHKHC-32 Vaccine Completed 07/28/2025, 07/19/2024, 08/03/2023, Additional history exists [facility]-Influenza Vaccine Completed 07/28/2025 , 07/19/2024, 08/03/2023, Additional history exists HPV Vaccines Aged Out No longer eligi ble based on patient's age to complete this topic [facility]-HIB Vaccines Aged Out No longer e ligible based on patient's age to complete this topic [facility]-IPV Vaccines Aged Out No longer e ligible based on patient's age to complete this topic [facility]-Rotavirus Vaccines Aged Out No lo nger eligible based on patient's age to complete this topic Procedures Procedure Name Priority Date/Time Associated Diagnosis Comments IMAGING MRI PROCEDURE NOT PERFORMED Routine 08/08/2025 11:28 AM EDT At high risk for breast cancer Family history of breast cancer MAMMOGRAPHY BREAST DIAGNOSTIC TOMOSYNTHESIS BILATERAL Routine 02/05/2025 11:17 AM EDT At high risk for breast cancer Family history of breast cancer CYTO DATA CONVERSION Routine 09/07/2001 12:00 AM EDT from Last 3 Months or Most Recently Relevant to Health Maintenance Results * Imaging MRI Procedure Not Performed (08/08/2025 11:28 AM EDT) Narrative IMAGING - 08/08/2025 11:28 AM EDT This procedure was not performed. Procedure: MRI breast wow contrast Reason: Body Habitus us Ann Burr AVIONICS ENGINEER IMG MRI PROCEDURES Final R esult IMAGING * Mammography Breast Diagnostic Tomosynthesis Bilateral (02/05/2025 11:17 AM EDT) Anatomical Region Laterality Modality Breast Bilateral Mammography Addenda Addendum by Jannette Perea MD on 02/28/2025 3:38 PM EDT Addendum: ADDENDUM: TECHNIQUE: Bilateral diagnostic mammogram was performed. Computer assisted detection was used in the interpretation of this study. Tomosynthesis was used in the interpretation of this study. Multiplanar, jerome scale directed ultrasound of bilateral breasts with limited Doppler vascular ultrasound was performed. Elastography was performed. Drafted by Jannette Perea MD on 02/28/2025 3:36 PM Final report signed by Jannette Perea MD on 02/28/2025 3:38 PM Impressions 02/05/2025 3:01 PM EDT Right Breast BI-RADS Code: BI-RADS 3, Probably benign finding. Left Breast BI-RADS Code: BI-RADS 3, Probably benign finding. RECOMMENDATIONS: Right Breast Recommendations: Breast Ultrasound 6 Months Left Breast Recommendations: Diagnostic Mammogram in 1 Year Breast Ultrasound 1 year CRITICAL RESULT: No. COMMUNICATION: The results and recommendations were discussed with the patient and a printed lay language version of the imaging report was given to the patient at the time of the visit. The mammogram was read with the assistance of CAD and tomosynthesis. By electronically signing this report, I, the attending physician, attest that I have personally reviewed the images/data for the above examination(s) and agree with the final edited report. Drafted by Emeterio Resendiz MD on 02/05/2025 1:11 PM Final report signed by Jannette Perea MD on 02/05/2025 3:01 PM Narrative 02/05/2025 3:01 PM EDT CLINICAL INDICATION: 63-year-old woman here for annual evaluation and follow-up of BI-RADS 3 findings in the left breast. 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 High risk patient with family history or breast cancer in mother, sister, maternal grandmother. TECHNIQUE: Bilateral diagnostic mammogram was performed. Computer assisted detection was used in the interpretation of this study. Tomosynthesis was used in the interpretation of this study. Multiplanar, jerome scale directed ultrasound of bilateral breasts with limited Doppler vascular ultrasound was performed. Elastography was not performed. COMPARISON: 12/13/2023, 08/08/2023, 11/28/2022, 09/08/2021, 07/17/2020. Bilateral Breast Density: There are scattered areas of fibroglandular density. FINDINGS: Mammogram Findings: There are multiple bilateral masses redemonstrated. Stable position of tissue markers, one in each breast. There is a new oval mass at 12:00 13 cm from the nipple measuring 9 mm. Ultrasound performed for further evaluation. Right breast ultrasound findings: Targeted ultrasound of the right breast 12:00, 13 cm from the nipple, demonstrates an oval circumscribed hypoechoic mass, avascular and soft on elastography, measuring 8 x 9 x 3, likely complicated cyst. This correlates with the mammographic. BI-RADS 3. Left Breast Ultrasound Findings: Finding 1: Follow-up ultrasound of the left breast at 1:00, 5 cm from the nipple with interval decreased size of hypoechoic avascular mass measuring 5 x 4 x 1 mm, previously 6 x 4 x 4 mm. This has not increased in size since 12/13/2023. Follow-up in one year is recommended. BI-RADS 3. Finding 2: Follow-up ultrasound of the left breast at 1:00, 8 cm from the nipple, demonstrates a stable hypoechoic avascular mass measuring 6 x 4 x 4 mm. This is stable from 12/13/2023. Follow-up in one year is recommended. BI-RADS 3. Procedure Note Jannette Perea MD - 02/28/2025 CLINICAL INDICATION: 63-year-old woman here for annual evaluation and follow-up of BI-RADS 3findings in the left breast. History of papilloma in the left 1:00distribution as per outside hospital report dated 08/23/2023. High riskpatient with family history or breast cancer in mother, sister, maternalgrandmother. TECHNIQUE: Bilateral diagnostic mammogram was performed. Computer assisted detection was used in the interpretation of this study.Tomosynthesis was used in the interpretation of this study. Multiplanar, jerome scale directed ultrasound of bilateral breasts withlimited Doppler vascular ultrasound was performed. Elastography was notperformed. COMPARISON: 12/13/2023, 08/08/2023, 11/28/2022, 09/08/2021, 07/17/2020. Bilateral Breast Density: There are scattered areas of fibroglandulardensity. FINDINGS: Mammogram Findings: There are multiple bilateral masses redemonstrated.Stable position of tissue markers, one in each breast. There is a new oval mass at 12:00 13 cm from the nipple measuring 9 mm.Ultrasound performed for further evaluation. Right breast ultrasound findings: Targeted ultrasound of the right breast 12:00, 13 cm from the nipple,demonstrates an oval circumscribed hypoechoic mass, avascular and soft onelastography, measuring 8 x 9 x 3, likely complicated cyst. Thiscorrelates with the mammographic. BI-RADS 3. Left Breast Ultrasound Findings: Finding 1: Follow-up ultrasound of the left breast at 1:00, 5 cm from thenipple with interval decreased size of hypoechoic avascular mass measuring5 x 4 x 1 mm, previously 6 x 4 x 4 mm. This has not increased in sizesince 12/13/2023. Follow- up in one year is recommended. BI-RADS 3. Finding 2: Follow-up ultrasound of the left breast at 1:00, 8 cm from thenipple, demonstrates a stable hypoechoic avascular mass measuring 6 x 4 x4 mm. This is stable from 12/13/2023. Follow-up in one year is recommended.BI-RADS 3. IMPRESSION: Right Breast BI-RADS Code: BI-RADS 3, Probably benign finding. Left Breast BI-RADS Code: BI-RADS 3, Probably benign finding. RECOMMENDATIONS: Right Breast Recommendations: Breast Ultrasound 6 Months Left Breast Recommendations: Diagnostic Mammogram in 1 Year BreastUltrasound 1 year CRITICAL RESULT: No. COMMUNICATION: The results and recommendations were discussed with the patient and aprinted lay language version of the imaging report was given to thepatient at the time of the visit. The mammogram was read with theassistance of CAD and tomosynthesis. By electronically signing this report, I, the attending physician, nickat I have personally reviewed the images/data for the aboveexamination(s) and agree with the final edited report. Drafted by Emeterio Resendiz MD on 02/05/2025 1:11 PM Final report signed by Jannette Perea MD on 02/05/2025 3:01 PM us Jennifer Burr AVIONICS ENGINEER IMG BI PROCEDURES Edited R esult - Final * Cytology (09/07/2001 12:00 AM EDT) 09/07/2001 09/10/2001 9:5 7 AM EST Narrative SUNQUEST - 09/14/2001 4:53 PM EST [facility] MR #: [id number] [facility] [place] [address] 1960 (Age: 40) FW Collect Date: 09/07/2001 00:00 Receipt Date: 09/10/2001 09:57 Page 1 DEPARTMENT OF PATHOLOGY AND LABORATORY MEDICINE CYTOPATHOLOGY REPORT Email: [email or web address] [email or web address] ATTENDING MD/Practitioner: Lydia Pineda M.D. Service: [facility] Location: [facility] Reported: 09/14/2001 16:53 Collected: 09/07/2001 00:00 INTERPRETATION THIN PREP (VAGINAL): NEGATIVE FOR INTRAEPITHELIAL LESION OR MALIGNANCY. SATISFACTORY FOR EVALUATION. Electronically Signed Out By CASIE Payan (ASCP) CASIE Payan (ASCP) Cervical cytology is a screening test primarily for squamous cancers and precursors and has associated false negative and positive results. New technologies such as liquid based sampling may decrease but will not eliminate all false negative results. Regular screening and follow-up of unexplained clinical signs and symptoms are recommended to minimize false negative results. Please see the ASCCP website (www.asccp.org) for followup recommendations. If HPV testing was requested, correlation with the results is suggested (please call Microbiology at [phone] for results). 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 The signing pathologist has performed and is responsible for the reported pathologic evaluation. Florentino Pineda MD LAB PATHOLOGY ORDERABLES F inal Result SUNQUEST from Last 3 Months or Most Recently Relevant to Health Maintenance Insurance [employer] Care Teams Senior Financial Consultant Relationship Specialty Start Date End Date Stephanie Catherine APRN PCP - General 12/11/23
--- OUTSIDE RECORDS SUMMARY | 2025-09-18 19:37 | XMS_ITS | Encounter Summary ---
Author Organization Healthcare Address [address] [place] [address] Care Team Providers Care Eeg Tech Name Role Phone Stephanie Catherine SWISS MACHINIST Primary Care Provider [phone] [phone] Encounter Details Date Type Department Care Team (Late st Contact Info) Description 08/22/2016 Orders Only External Location [address] [place] [address] Provider, External Social History Tobacco [...] EDT Appointment PAV Breast [facility] Breast Care [place] [address] T[address] [facility] [address] [place] [address] 02/09/2026 10:30 AM EDT Appointment PAV [facility] Breast Care [address] [place] [address] 02/09/2026 11:30 AM EDT Office Visit [facility] [address] [facility]nd [place] [address] Jennifer Burr APRN [address] [facility] Tami Choi [address] [address] documented as of this encounter Procedures Procedure Name Priority Date/Time Associated Diagnosis Comments MR BREAST OUTSIDE IMAGES 08/22/2016 1:38 PM EDT documented in this encounter Results * MR BREAST OUTSIDE IMAGES (08/22/2016 1:38 PM EDT) Anatomical Region Laterality Modality Breast Mammography 08/22/2016 1:38 PM EDT us External Provider IMG BI PROCEDURES Final Result documented in this encounter Visit Diagnoses Not on filedocumented in this encounter Care Teams Eeg Tech Relationship Specialty Start Date End Date Stephanie Catherine APRN PCP - General 12/11/23 documented as of this encounter
--- OUTSIDE RECORDS SUMMARY | 2025-09-18 19:37 | XMS_ITS | Encounter Summary ---
Demographics Address [address] [address] Mobile Phone Home Phone Email Address [email or web address] Preferred Language en Marital Status Anabaptist Affiliation Unknown Race White Ethnic Group Not or Lati no Author Organization Healthcare Address [address] [place] [address] Care Team Providers Care Stock Mover Name Role Phone Stephanie Catherine MACHINE UMBRELLA TIPPER Primary Care Provider [phone] [phone] Encounter Details Date Type Department Care Team (Late st Contact Info) Description 07/14/2015 Orders Only External Location [address] [place] [address] Provider, External Social History Tobacco [...] 02/09/2026 9:45 AM EDT Appointment PAV Breast [facility] Breast Care [place] [address] Tami Choi [facility] [address] [place] [address] 02/09/2026 10:30 AM EDT Appointment PAV [facility] [address] [facility] [address] [place] [address] 02/09/2026 11:30 AM EDT Office Visit [facility] [address] [facility] [place] [address] Jennifer Burr APRN [address] [facility] Tami Choi [address] [address] documented as of this encounter Procedures Procedure Name Priority Date/Time Associated Diagnosis Comments MR BREAST OUTSIDE IMAGES 07/14/2015 8:36 AM EDT documented in this encounter Results * MR BREAST OUTSIDE IMAGES (07/14/2015 8:36 AM EDT) Anatomical Region Laterality Modality Breast Mammography 07/14/2015 8:36 AM EDT us External Provider IMG BI PROCEDURES Final Result documented in this encounter Visit Diagnoses Not on filedocumented in this encounter Care Teams Stock Mover Relationship Specialty Start Date End Date Stephanie Catherine APRN PCP - General 12/11/23 documented as of this encounter
--- OUTSIDE RECORDS SUMMARY | 2025-09-18 19:37 | XMS_ITS | Encounter Summary ---
Author Organization [facility] Address [address] [place] [address] Care Team Providers Care Director Regulatory Agency Name Role Phone Stephanie Catherine LUIZA Primary Care Provider [phone] [phone] Encounter Details Date Type Department Care Team (Latest Contact Info) Description 08/04/2025 Travel Social History Tobacco Use Types Packs/Day [...] 02/09/2026 9:45 AM EDT Appointment PAV Breast [facility] Breast Care [facility] [address] [facility] [address] [place] [address] 02/09/2026 10:30 AM EDT Appointment PAV [facility] Breast [facility] [address] [facility] [address] [place] [address] 02/09/2026 11:30 AM EDT Office Visit PAV Breast Care [address] [place] [address] Jennifer Burr, SALES ENABLEMENT MANAGER [address] [facility] Tami Choi [facility] [address] [place] [address] documented as of this encounter Visit Diagnoses Not on filedocumented in this encounter Additional Health Concerns Assessment Noted Time A fall risk assessment has been complete d for the patient 02/05/2025 3:11 PM EDT documented as of this encounter Care Teams Director Regulatory Agency Relationship Specialty Start Date End Date Stephanie Catherine APRN PCP - General 12/11/23 documented as of this encounter
--- OUTSIDE RECORDS SUMMARY | 2025-09-18 19:37 | XMS_ITS | Encounter Summary ---
Author Organization [facility] Address [address] [place] [address] Care Team Providers Care Cloth Mercerizer Operator Name Role Phone Stephanie Catherine TRANSLATOR INTERPRETER Primary Care Provider [phone] Encounter Details Date Type Department Care Team (Late st Contact Info) Description 08/23/2023 Orders Only External Location [address] [place] [address] Provider, External Social History Tobacco [...] 02/09/2026 9:45 AM EDT Appointment PAV Breast [facility] Breast Care [place] [address] Tami Choi [facility] [address] [place] [address] 02/09/2026 10:30 AM EDT Appointment PAV [facility] Breast Care [place] [address] [facility] [address] [place] [address] 02/09/2026 11:30 AM EDT Office Visit PAV Breast Care [place] [address] [facility], [address]nd [place] [address] Jennifer Burr APRN [address] [facility] Tami Choi [address] [address] documented as of this encounter Procedures Procedure Name Priority Date/Time Associated Diagnosis Comments US BREAST OUTSIDE IMAGES 08/23/2023 9:56 AM EDT documented in this encounter Results * US BREAST OUTSIDE IMAGES (08/23/2023 9:56 AM EDT) Anatomical Region Laterality Modality Breast Mammography 08/23/2023 9:56 AM EDT us External Provider IMG BI PROCEDURES Final Result documented in this encounter Visit Diagnoses Not on filedocumented in this encounter Care Teams Cloth Mercerizer Operator Relationship Specialty Start Date End Date Stephanie Catherine APRN PCP - General 12/11/23 documented as of this encounter
--- OUTSIDE RECORDS SUMMARY | 2025-09-18 19:37 | XMS_ITS | Encounter Summary ---
Author Organization Healthcare Address [address] [place] [address] Care Team Providers Care Sharepoint Developer Name Role Phone Stephanie Catherine PATENT SEARCHER Primary Care Provider [phone] Encounter Details Date Type Department Care Team (Late st Contact Info) Description 10/29/2019 Orders Only External Location [address] [place] [address] Provider, External Social History Tobacco [...] PAV Breast [facility] Breast Care [place] [address] Tami Choi [facility] [address] [place] [address] 02/09/2026 10:30 AM EDT Appoint[address] [facility] Breast Care [address] [facility] [address] [place] [address] 02/09/2026 11:30 AM EDT Office Visit P[facility] [address] [facility], 2nd [place] [id number] Jennifer Burr APRN [address] [facility] Tami Choi [address] [address] documented as of this encounter Procedures Procedure Name Priority Date/Time Associated Diagnosis Comments MR BREAST OUTSIDE IMAGES 10/29/2019 10:01 AM EST documented in this encounter Results * MR BREAST OUTSIDE IMAGES (10/29/2019 10:01 AM EST) Anatomical Region Laterality Modality Breast Mammography 10/29/2019 10:0 1 AM EST us External Provider IMG BI PROCEDURES Final Result documented in this encounter Visit Diagnoses Not on filedocumented in this encounter Care Teams Sharepoint Developer Relationship Specialty Start Date End Date Stephanie Catherine APRN PCP - General 12/11/23 documented as of this encounter
--- OUTSIDE RECORDS SUMMARY | 2025-09-18 19:37 | XMS_ITS | Encounter Summary ---
Author Organization [facility] Address [address] [place] [address] Care Team Providers Care Electrical Automation Engineer Name Role Phone Stephanie Catherine PATHOLOGICAL TECHNICIAN Primary Care Provider [phone] Encounter Details Date Type Department Care Team (Late st Contact Info) Description 08/08/2023 Orders Only External Location [address] [place] [address] Provider, External Social History Tobacco [...] 02/09/2026 9:45 AM EDT Appointment PAV Breast [facility] Breast Care [place] [address] Tami Choi [facility] [address] [place] [address] 02/09/2026 10:30 AM EDT Appointment PAV [facility] Breast Care [place] [address] [facility] [address] [place] [address] 02/09/2026 11:30 AM EDT Office Visit PAV Breast Care [place] [address] [facility], 2nd [place] [phone] Jennifer Burr APRN [address] [facility] Tami Choi [address] [address] documented as of this encounter Procedures Procedure Name Priority Date/Time Associated Diagnosis Comments US BREAST OUTSIDE IMAGES 08/08/2023 8:22 AM EDT documented in this encounter Results * US BREAST OUTSIDE IMAGES (08/08/2023 8:22 AM EDT) Anatomical Region Laterality Modality Breast Mammography 08/08/2023 8:22 AM EDT us External Provider IMG BI PROCEDURES Final Result documented in this encounter Visit Diagnoses Not on filedocumented in this encounter Care Teams Electrical Automation Engineer Relationship Specialty Start Date End Date Stephanie Catherine APRN PCP - General 12/11/23 documented as of this encounter
--- OUTSIDE RECORDS SUMMARY | 2025-09-18 19:37 | XMS_ITS | Encounter Summary ---
Author Organization Healthcare Address [address] [place] [address] Care Team Providers Care Marketing Senior Recruiter Name Role Phone Stephanie Catherine PAPERBOARD BOXES ESTIMATOR Primary Care Provider [phone] Encounter Details Date Type Department Care Team (Late st Contact Info) Description 05/30/2016 Orders Only External Location [address] [place] [address] Provider, External Social History Tobacco [...] Breast [facility] Breast Care [place] [address] Tami Choi [facility] [address] [place] [address] 02/09/2026 10:30 AM EDT Appointment PAV [facility] [address] [facility] [address] [place] [address] 02/09/2026 11:30 AM EDT Office Visit PAV [facility] [address] [facility], 2nd [place] [phone] Jennifer Burr APRN [address] [facility] Tami Choi [address] [address] documented as of this encounter Procedures Procedure Name Priority Date/Time Associated Diagnosis Comments US BREAST OUTSIDE IMAGES 05/30/2016 8:20 AM EDT documented in this encounter Results * US BREAST OUTSIDE IMAGES (05/30/2016 8:20 AM EDT) Anatomical Region Laterality Modality Breast Mammography 05/30/2016 8:20 AM EDT us External Provider IMG BI PROCEDURES Final Result documented in this encounter Visit Diagnoses Not on filedocumented in this encounter Care Teams Marketing Senior Recruiter Relationship Specialty Start Date End Date Stephanie Catherine APRN PCP - General 12/11/23 documented as of this encounter
--- OUTSIDE RECORDS SUMMARY | 2025-09-18 19:37 | XMS_ITS | Encounter Summary ---
Author Organization [facility] Address [address] [place] [address] Care Team Providers Care Water Registrar Name Role Phone Luis Angel Short MD Primary Care Provider Reason for Visit * Reason Onset Date Comments INSURANCE 09/15/2025 Spoke with poornima cerrato regarding insurance. She said she has Clements and will call us back with the member ID number prior to her 09/26/[address] Gutierrez. Encounter Details Date Type Department Care Team (Late st Contact Info) Description 09/15/2025 Telephone [facility] CARDIOLOGY [address] [facility] [address] [place] [address] Leandro Gutierrez MD [address] [facility], [facility] E [facility] [address] [place] [address] INSURANCE (Spoke with patient regarding insurance. She said she has Clements and will call us back with the member ID number prior to her 09/26/[address] Gutierrez.) Social History Tobacco Use Types Packs/Day Years Used Date Smoking Tobacco: Never Passive Smoke Exposure: Past Smokeless Tobacco: Never Alcohol Use Standard Drinks/Week Comments No 0 (1 standard drink = 0.6 oz pur e alcohol) AUDIT-C Answer Date Recorded Q1: How often do you have a drink containing alcohol? Never 02/06/2023 Q2: How many drinks containi ng alcohol do you have on a typical day when you are drinking? Patient does not drink Q3: How often do you have si x or more drinks on one occasion? Never 02/06/2023 PHQ-2 Answer Date Recorded Retired PHQ-9: Brief Depression Severity Measure Score 1 09/21/2023 Abuse Screen Answer Date Recorded Unsafe at Home or Work/School Not on file Feels Threatened by Someone? Not on file Does Anyone Keep You from Co ntacting Others or Doint Things Outside the Home? Not on file 02/08/2024 Physical Sign of Abuse Present Not on file 0 02/08/2024 Housing Stability Answer Date Recorded Current Living Arrangements Not on file 01/12 Potentially Unsafe Housing Conditions Not on suzanna e 02/08/2024 Family and Community Support Answer Alexandr e Recorded Help with Day-to-Day Activities Not on file 08/21/2023 Lonely or Isolated Not on file 08/21/2023 Employment Answer Date Recorded Do you want help finding or keeping work or a elizabeth b? Not on file 08/21/2023 Disabilities Answer Date Recorded Concentrating, Remembering, or Making Decisions Difficulty Not on file 02/08/2024 Doing Errands Independently Difficulty Not on fi le 02/08/2024 Education Answer Date Recorded Help with school or training? Not on file Preferred Language Not on file 08/21/2023 PHQ-2 Answer Date Recorded Retired PHQ-9: Brief Depression Severity Measure Score 1 09/21/2023 Comments No Sex and Gender Information Value Date Recorded Sex Assigned at Not on file Legal Sex Female 10:01 AM EDT Gender Identity Not on file Sexual Orientation Not on file documented as of this encounter Miscellaneous Notes * Telephone Encounter - Shirin Gamble RegSched Rep - 09/15/2025 3:59 PM EST Spoke with patient regarding insurance. She said she has Clements and will call us back with the member ID number prior to her 09/26/[address] Gutierrez. documented in this encounter Plan of Treatment Upcoming Encounters Date Type Department Care Team (Late st Contact Info) Description 09/26/2025 10:45 AM EST Office Visit [facility] CARDIOLOGY [address] [place] [address] Leandro Gutierrez MD [address] [place] [address] Scheduled Procedures Name Priority Associated Diagnoses Date/Ti me LEFT HEART CATH w/cors Unstable angina Chest pain, unspecified type documented as of this encounter Visit Diagnoses Not on filedocumented in this encounter Additional Health Concerns Assessment Noted Time PHQ-2 Depression Total Score: 1 09/21/20 23 10:35 AM EST documented as of this encounter Care Teams Water Registrar Relationship Specialty Start Date End Date Luis Angel Short MD [facility] [address] [facility] [address] [place] [address] PCP - General Internal Medicine 05/30/16 documented as of this encounter
--- OUTSIDE RECORDS SUMMARY | 2025-09-18 19:37 | XMS_ITS | Clinical Summary ---
Author Organization [facility] Address [address] [place] [address] Care Team Providers Care Clinic Nurse Name Role Phone Luis Angel Short MD Primary Care Provider Allergies Active Allergy Reactions Criticality Noted Date Comments Adhesive Tape Other (See Comments) 11/25/2016 SKIN IRRITATION Aspirin Hives Medium 11/15/2016 dyspnea Bee Venom Anaphylaxis High 02/06/2023 Doxycycline Shortness Of Breath High 04/26/2016 Regadenoson Shortness Of Breath,Other (See Comments) High 12/30/2016 SOB Morphine And Codeine Hives,Shortness Of Breath,Other (See Comments) High 11/25/2016 Percocet and related Other Shortness Of Breath,Other (See Comments) High 04/26/2016 IV Dye Oxytetracycline Other (See Comments) 04/26/2016 WAS TOLD TO NEVER TAKE AGAIN; STATES PASSED OUT IN MD OFFICE Medications montelukast (SINGULAIR) 10 MG tablet Take 1 tablet by mouth Daily. Active metaxalone (SKELAXIN) 800 MG tablet Take 1 tablet by mouth 3 (Three) Times a Day As Needed. Active traMADol (ULTRAM) 50 MG tablet Take 1 tablet by mouth As Needed for Moderate Pain. Active Loratadine (CLARITIN PO) Take 1 tablet by mouth Daily. Active Dextromethorpha n-Guaifenesin (MUCINEX DM PO) Take 1 tablet by mouth Daily. Active ferrous sulfate 325 (65 FE) MG tablet Take 1 tablet by mouth Daily With Breakfast. Active losartan (COZAAR) 100 MG tablet Take 1 tablet by mouth Daily. Active albuterol (PROVENTIL HFA;VENTOLIN HFA) 108 (90 BASE) MCG/ACT inhaler Inhale 2 puffs As Needed. Active vitamin E 400 UNIT capsule Take 2 capsules by mouth Daily. Active pravastatin (PRAVACHOL) 20 MG tablet TAKE 1 TABLET DAILY 90 tablet 3 8 Active potassium chloride (K-DUR,KLOR-CON ) 20 MEQ CR tablet Take 1 tablet by mouth Daily. 8 Active loratadine (CLARITIN) 5 MG/5ML syrup Take 5 mL by mouth Daily. Active Cyanocobalamin (B-12) 5000 MCG capsule Take 2 tablets by mouth Daily. Active Cholecalciferol (VITAMIN D3) 5000 units capsule capsule Take 2 capsules by mouth Daily. Active clotrimazole (LOTRIMIN) 1 % cream Apply 1 Application topically to the appropriate area as directed As Needed. 9 Active imiquimod (ALDARA) 5 % cream Apply 1 packet topically to the appropriate area as directed As Needed. 9 Active clobetasol (TEMOVATE) 0.05 % cream Apply topically to the appropriate area as directed 2 (Two) Times a Day. Active nystatin (MYCOSTATIN) 451012 UNIT/GM cream Apply topically to the appropriate area as directed 2 (two) times a day. Apply BID to affected area 30 g 5 0 Active azelastine (ASTEPRO) 0.15 % solution nasal spray 1 spray into the nostril(s) as directed by provider Daily. 1 Active fluticasone (FLONASE) 50 MCG/ACT nasal spray 1 spray by Each Nare route Daily. 1 Active hydrocortisone 2.5 % cream Apply 1 Application topically to the appropriate area as directed As Needed. 1 Active Misc Natural Products (GLUCOS-CHONDRO IT-MSM COMPLEX PO) Take by mouth Daily. Active ciclopirox (LOPROX) 0.77 % cream 2 Active EPINEPHrine (EPIPEN) 0.3 MG/0.3ML solution auto-injector injection 2 Active GlucaGen HypoKit 1 MG injection 2 Active metoprolol tartrate (LOPRESSOR) 25 MG tablet Take 1 tablet by mouth Daily. 2 Active amLODIPine (NORVASC) 5 MG tablet Take 1 tablet by mouth Daily. 2 Active mupirocin (BACTROBAN) 2 % ointment Apply 1 application topically to the appropriate area as directed 3 (Three) Times a Day. 30 g 2 2 Active guaiFENesin-cod eine (ROMILAR-AC) 100-10 MG/5ML syrup 2 Active predniSONE (DELTASONE) 10 MG tablet As Needed. 3 Active Fluticasone-Ume clidin-Vilant (TRELEGY ELLIPTA IN) Inhale. Active nitroglycerin (NITROSTAT) 0.4 MG SL tablet 1 under the tongue as needed for angina, may repeat q5mins for up three doses 100 tablet 1 3 Active sulfamethoxazol e-trimethoprim (BACTRIM DS,SEPTRA DS) 800-160 MG per tablet Take 1 tablet by mouth 2 (Two) Times a Day. 14 tablet 3 Active ketoconazole (NIZORAL) 2 % cream 4 Active triamterene-hyd rochlorothiazid e (MAXZIDE-25) 37.5-25 MG per tablet 4 Active Active Problems Problem Noted Date Diagnosed Date Coronary artery spasm 03/17/2023 Dyslipidemia 03/17/2023 Morbid obesity with BMI of 45.0-49.9, adult 03/2023 Essential hypertension 03/17/2023 At high risk for breast cancer 02/03/2021 Breast cancer screening, high risk patient 01/11 Candidiasis of skin 01/11/2017 Hypertension 11/15/2016 Diastolic heart failure 11/15/2016 Asthma 11/15/2016 Chronic anxiety 11/15/2016 Well female exam with routine gynecological exam 07/08/2016 Family history of malignant neoplasm of breast 0 07/08/2016 Bilateral fibrocystic breast disease (FCBD) 06/14 Resolved Problems Problem Noted Date Diagnosed Date Resolved Date Unstable angina 01/31/2023 03/17/2023 Overview (01/31/2023): Added automatically from request for surgery [id number] Hypertensive heart disease 11/15/2016 0 03/17/2023 Precordial pain 11/15/2016 03/17/2023 Overview (11/25/2016): a. GXT in 2002 was negative. b. LHC in 2003 was negative with normal EF. c. Now complains of recurrent chest pain, possible spastic angina versus atypical chest pain. d. Echocardiogram, 12/12/2011, showed normal LV function with mild aortic regurgitation, mild MR and mild TR with mild left atrial enlargement, features of hypertensive heart disease. e. Cardiolite stress test, April 2012, was negative for ischemia and showed EF of 80%. f. Recurrent angina Encounters Date Type Department Care Team Description 09/15/2025 Telephone [facility] CARDIOLOGY [address] [place] [address] [address] [place] [address] Leandro Gutierrez MD INSURANCE (Spoke with patient regarding insurance. She said she has Wisdom and will call us back with the member ID number prior to her 09/26/[address] Gutierrez.) from Last 3 Months Immunizations Immunization Administration Dates Next Due Flu Vaccine Intradermal Quad 18-64YR 08/30/2021 Family History Medical History Relation Name Comments Breast cancer Cousin 1 Maternal unknown Breast cancer Cousin 2 Breast cancer Cousin 3 unknown Asthma Father Diabetes Father Hypertension Father Throat cancer Father Breast cancer Maternal Aunt unknown Ovarian cancer Maternal Grandmother unkno wn Bone cancer Mother Breast cancer Mother Hypertension Mother Ovarian cancer Mother Breast cancer Sister Ovarian cancer Sister BRCA 1/2 Neg Hx Relation Name Status Comments Cousin 1 Maternal Other Cousin 2 Cousin 3 Father Maternal Aunt Maternal Grandmother Mother Sister Social History Tobacco Use Types Packs/Day Years Used Date Smoking Tobacco: Never Passive Smoke Exposure: Past Smokeless Tobacco: Never Tobacco Cessation:Counseling Given: Not Answered Alcohol Use Standard Drinks/Week Comments No 0 [...] Sign Reading Time Taken Comments Blood Pressure 122/72 05/03/2024 9:28 AM EDT Pulse 69 09/21/2023 10:31 AM EST Temperature 36.4 C (97.6 F) 09/21/2023 10:31 AM EST Respiratory Rate 24 09/21/2023 10:31 AM EST Oxygen Saturation 97% 05/03/2024 9:28 AM EDT Inhaled Oxygen Concentration - - Weight 129 kg (285 lb) 05/03/2024 9:28 AM EDT Height 170.2 cm (5' 7.01 ) 05/03/2024 9:28 AM ED T Body Mass Index 44.63 05/03/2024 9:28 AM EDT Plan of Treatment Upcoming Encounters Date Type Department Care Team (Late st Contact Info) Description 09/26/2025 10:45 AM EST Office Visit [facility] CARDIOLOGY [address] [place] [address] Leandro Gutierrez MD [address] [place] [address] Scheduled Procedures Name Priority Associated Diagnoses Date/Ti me LEFT HEART CATH w/cors Unstable angina Chest pain, unspecified type Health Maintenance Due Date Last Done Comments Pneumococcal Vaccine 50+ (1 of 2 - PCV) 1979 COLOGUARD 2005 COLON CANCER SCREENING 5 YEA R SIGMOIDOSCOPY 2005 CT COLONOGRAPHY 2005 FECAL OCCULT BLOOD TEST 2005 FIT Testing (1 year) 2005 ANNUAL WELLNESS VISIT 07/19/2017 HEPATITIS C SCREENING 07/19/2017 PT PLAN OF CARE 02/25/2019 Annual Gynecologic Pelvic an d Breast Exam 03/21/2024 03/20/2023, 01/15/2018, 01/11/2017 INFLUENZA VACCINE 06/13/2025 08/03/2023, , 07/17/2018 TDAP/TD VACCINES (2 - Td or Tdap) 08/01/2026 016 MAMMOGRAM 02/05/2027 02/05/2025, 11/15, 12/13/2023, Additional history exists COLONOSCOPY 12/28/2028 12/28/2023, 07/0 03/2018, 11/13/2013 COLORECTAL CANCER SCREENING 12/28/2028 ZOSTER VACCINE Completed 04/30/2019, 01/22/2019 Procedures Procedure Name Priority Date/Time Associated Diagnosis Comments SCANNED - COLONOSCOPY 12/28/2023 MAMMO DIAGNOSTIC DIGITAL TOMOSYNTHESIS LEFT W CAD Routine 08/08/2023 9:15 AM EDT At high risk for breast cancer Abnormal MRI, breast SCANNED - PAP SMEAR 01/15/2018 from Last 3 Months or Most Recently Relevant to Health Maintenance Results * SCANNED - COLONOSCOPY (12/28/2023) us Gentry Lee MD CHART REVIEW TABS Final Res ult * (ABNORMAL) Mammo Diagnostic Digital Tomosynthesis Left With CAD (08/08/2023 9:15 AM EDT) Anatomical Region Laterality Modality Breast Left Mammography 08/08/2023 11:3 7 AM EDT Addenda Addendum by Joana Glover MD on 08/23/2023 4:58 PM EDT The patient did go on to have ultrasound-guided core biopsy of the questionable intraductal mass in the 1 o'clock position, 8 cm from the nipple. This returned as an intraductal papilloma. On review of the patient's imaging a questionable additional intraductal mass is noted at 1:00, 6 cm from the nipple. Therefore, prior to surgical consultation recommend patient return for reevaluation of this region and possible core biopsy of this finding. This report was finalized on 08/23/2023 4:[address] Joana Glover MD. Impressions 08/08/2023 11:47 AM EDT There is a nodular focal asymmetry in the anterior left upper outer quadrant mammographically which may correlate to the recent breast MRI findings. Sonographically there is a questionable intraductal mass in the 1 o'clock position, 8 cm from the nipple which may correlate. Ultrasound-guided core biopsy of this finding is recommended RECOMMENDATION: Recommend ultrasound-guided core biopsy of a 0.8 cm possible intraductal mass in the 1:00 region of the left breast as described above. ACR BI-RADS CATEGORY: 4, SUSPICIOUS CAD was utilized. The standard false-negative rate of mammography is between 10% and 25%. Complex patterns or increased breast density will markedly elevate the false-negative rate of mammography. A letter, in lay terminology, with the results of this exam was given to the patient at the time of the visit. At our facility, a triangular marker is positioned over a palpable area of concern indicated by the patient. A newtok marker is placed over a visible skin lesion. A linear marker indicates a scar. Physician Order Ultrasound Guided Breast Biopsy Diagnosis: Abnormal Mammogram This report was finalized on 08/08/2023 11:[address] Joana Glover MD. Narrative 08/08/2023 11:47 AM EDT LEFT DIAGNOSTIC MAMMOGRAM WITH TOMOSYNTHESIS CLINICAL INDICATION: 62-year-old patient presents for evaluation of the left breast recommended from recent breast MRI done on 07/26/2023. TECHNIQUE: 2D/3D combination right CC and ML views were performed and supplemented with right CC and ML focal compression views. COMPARISON: 11/28/2022, 11/08/2021, 07/17/2020, 08/05/2019 FINDINGS: There are scattered areas of fibroglandular density. There is a nodular focal asymmetry in the anterior upper outer quadrant which may correlate to the dominant focus of contrast enhancement noted in the left anterior upper outer quadrant on the recent breast MRI. Other areas of mammographic nodularity appear not significantly changed. No spiculated masses, architectural distortion or suspicious calcifications. Subsequent ultrasound imaging of the left superior breast was performed. There are areas of ductal ectasia and some scattered cysts as well as minimally complicated cysts. In the 1 o'clock position, 8 cm from the nipple there is a questionable intraductal mass measuring 0.8 cm in size. This is felt to possibly correlate to the mammographic and MRI findings. Procedure Note Joana Glover MD - 08/09/2023 LEFT DIAGNOSTIC MAMMOGRAM WITH TOMOSYNTHESIS CLINICAL INDICATION: 62-year-old patient presents for evaluation of the left breast recommended from recent breast MRI done on 07/26/2023. TECHNIQUE: 2D/3D combination right CC and ML views were performed and supplemented with right CC and ML focal compression views. COMPARISON: 11/28/2022, 11/08/2021, 07/17/2020, 08/05/2019 FINDINGS: There are scattered areas of fibroglandular density. There is a nodular focal asymmetry in the anterior upper outer quadrant which may correlate to the dominant focus of contrast enhancement noted in the left anterior upper outer quadrant on the recent breast MRI. Other areas of mammographic nodularity appear not significantly changed. No spiculated masses, architectural distortion or suspicious calcifications. Subsequent ultrasound imaging of the left superior breast was performed. There are areas of ductal ectasia and some scattered cysts as well as minimally complicated cysts. In the 1 o'clock position, 8 cm from the nipple there is a questionable intraductal mass measuring 0.8 cm in size. This is felt to possibly correlate to the mammographic and MRI findings. IMPRESSION: There is a nodular focal asymmetry in the anterior left upper outer quadrant mammographically which may correlate to the recent breast MRI findings. Sonographically there is a questionable intraductal mass in the 1 o'clock position, 8 cm from the nipple which may correlate. Ultrasound-guided core biopsy of this finding is recommended RECOMMENDATION: Recommend ultrasound-guided core biopsy of a 0.8 cm possible intraductal mass in the 1:00 region of the left breast as described above. ACR BI-RADS CATEGORY: 4, SUSPICIOUS CAD was utilized. The standard false-negative rate of mammography is between 10% and 25%. Complex patterns or increased breast density will markedly elevate the false-negative rate of mammography. A letter, in lay terminology, with the results of this exam was given to the patient at the time of the visit. At our facility, a triangular marker is positioned over a palpable area of concern indicated by the patient. A newtok marker is placed over a visible skin lesion. A linear marker indicates a scar. Physician Order Ultrasound Guided Breast Biopsy Diagnosis: Abnormal Mammogram This report was finalized on 08/08/2023 11:[address] Joana Glover MD. Joana Glover MD IMG MAMMOGRAPHY ORDERABLES Hussein antionette Result - Final * SCANNED - PAP SMEAR (01/15/2018) Stephanie Catherine APRN CHART REVIEW TABS F inal Result from Last 3 Months or Most Recently Relevant to Health Maintenance Insurance [facility]IC[facility] A & B Care Teams Clinic Nurse Relationship Specialty Start Date End Date Luis Angel Short MD [address] [facility] [address] [place] [address] PCP - General Internal Medicine 05/30/16
--- OUTSIDE RECORDS SUMMARY | 2025-09-18 19:37 | XMS_ITS | Encounter Summary ---
Author Organization [facility] Address [address] [place] [address] Care Team Providers Care Wire Stockkeeper Name Role Phone Stephanie Catherine APRN Primary Care Provider [phone] Reason for Referral * Consultation (Routine) - Closed Specialty Diagnoses / Procedures Referred By Nikita hickman Referred To Contact Surgical Oncology / Hematology and Oncology Diagnoses At high risk for breast cancer Stephanie Catherine APRN [address] [place] [address] Phone: tel: fax: Referral ID Status Reason Start Date Expiration Date V isits Requested Visits Authorized [id number] Closed Specialty Services Required 12/05/2023 06/05/2025 1 1 Encounter Details Date Type Department Care Team (Late st Contact Info) Description 12/05/2023 Community [facility] [address] [place] [address] Stephanie Catherine APRN [address] [place] [address] At high risk for breast cancer (Primary Dx) Social History Tobacco Use Types Packs/Day Years [...] Description 02/09/2026 9:45 AM EDT Appointment [facility] [address] [facility] [address] [place] [address] 02/09/2026 10:30 AM EDT Appointment [facility] [address] [facility] [address] [place] [address] 02/09/2026 11:30 AM EDT Office Visit [facility] [address] [facility] [place] [address] Jennifer Burr, [employer] [address] [facility] [address] [address] Scheduled Referrals Name Type Priority Associated Diagnoses Order Schedule Ambulatory referral to Surgical Oncology Outpatient Referral Routine At high risk for breast cancer 1 Occurrences starting 12/05/2023 until 06/04/2025 documented as of this encounter Visit Diagnoses Diagnosis At high risk for breast cancer- Primary documented in this encounter Care Teams Wire Stockkeeper Relationship Specialty Start Date End Date Stephanie Catherine APRN PCP - General 12/11/23 documented as of this encounter
== END 2025-09-17 23:59 | disposition home or self-care (01) ==
LOC: LAB.DROPOF 09-18 19:35
PROVIDERS: PCP Internal Medicine; Visit Provider Internal Medicine
DX: E78.5 Hyperlipidemia, unspecified (principal); I10 Essential (primary) hypertension; E66.01 Morbid (severe) obesity due to excess calories
CPT/HCPCS: 80053; 80061; 85025